=== PATIENT | male | born 1940 | race Caucasian/White ===

== ENCOUNTER → 2018-01-10 12:49 | Day surgery (SDC) | payer OTHER, MEDICARE, SELFPAY | PROVIDERS: Family Provider Internal Medicine; PCP Internal Medicine; Visit Provider Ophthalmology ==

== ENCOUNTER 2018-03-14 07:19 | Day surgery (SDC) | payer OTHER, SELFPAY ==
[2018-03-14] MEDS: PROPARACAINE 0.5% OPHTH SOL 2 DROPS EYE-OP (07:45)
[2018-03-14] MEDS: CATARACT EYE COMPOUND (10 DROPS/SYRINGE) 3 DROPS EYE-OP (07:50)
[2018-03-14 07:54] VITALS: BP 164/88; PULSE 81; RESP 16; TEMP 36.6; O2SAT 97
--- NOTE | 2018-03-14 08:21 | SUR.PREOP ---
Pt ready for OR at this time. PIV in place, admit VS completed, Nursing data base has been completed and pre-operative eye drops in place. Paty at the bedside and awaiting APPLICATION SECURITY CONSULTANT.
--- NOTE | 2018-03-14 08:45 | P.OP.PRE_ITS ---
Pre-operative Note Interval Note Changes: No
--- NOTE | 2018-03-14 08:45 | P.OP_ITS ---
Operative Date/Time/Diagnoses Pre-op diagnosis: Cataract Right eye Post-op diagnosis: same Procedure & Clinicians Procedure: Cataract Surgery Same procedure as scheduled: Yes Surgeon: Stevenson Nash Anesthesia Type: MAC +/- and Sedation Operative Notes Procedure in detail: Patient brought to the operating suite. Tetracaine drops placed in the right eye. Patient was prepped and draped in sterile manner. Wire lid speculum was placed in the eye. Betadine drops were placed on the eye. This was irrigated. Lidocaine jelly was placed on the eye. A paracentesis port was created with a side-port blade. 0.1 mL 1% preservative free lidocaine was injected into the anterior chamber. The anterior chamber was deepened with viscoelastic. 2.6 mm keratome was used to create a temporal clear corneal incision. Cystotome and Utrata forceps were used to create continuous tear capsulorrhexis. Balanced salt solution was used to hydro dissect the nucleus. The phacoemulsification handpiece was inserted and the nucleus was removed using the stop and chop technique. The irrigation aspiration handpiece was inserted and the remaining cortex was removed. Anterior chamber was deepened with viscoelastic. An Hilliard ZCB00 intraocular lens with a power of 22.0 was injected into the capsular bag. Irrigation aspiration handpiece was inserted and the remaining viscoelastic was removed. Incision was hydrated with balanced salt solution and found to be leak free with pressure with Weck- Doreen sponges. 0.1 mL Vigamox injected anterior chamber. 0.3 mL Kenalog 10 mg was injected subconjunctivally. Lid speculum was removed. The patient left the operating room in excellent condition. Complications: none Condition: stable Disposition: same day surgery
--- NOTE | 2018-03-14 08:45 | PM.PREOP ---
Pre-operative Note Interval Note Changes: No
--- NOTE | 2018-03-14 09:01 | SUR.OPER ---
Supine on eye stretcher, head on extension cradle secured with tape. Arms tucked at sides with blanket. Pillow under knees.
[2018-03-14] MEDS: BALANCED SALT IRRIG SOLN NO.2 500 ML, EPINEPHrine 1 MG IRR (09:04)
[2018-03-14] MEDS: LIDOCAINE JELLY 2% 5 ML 1 APPLIC TOP (09:04)
[2018-03-14] MEDS: PHENYLEPHRINE/LIDOCAINE 3ML VIAL (OR) EYE-OP (09:04)
[2018-03-14] MEDS: MOXIFLOXACIN OPHTH DROPS 3 ML BOTTLE 2 DROPS INJ (09:05)
[2018-03-14] MEDS: TETRACAINE 0.5% OPHTH DROPS 15 ML 2 DROPS EYE-RIGHT (09:05)
[2018-03-14] MEDS: TRIAMCINOLONE 50 MG/5 ML VIAL INJ (09:06)
[2018-03-14 09:15] VITALS: BP 156/88; PULSE 76; RESP 16; TEMP 36.3; O2SAT 97
--- NOTE | 2018-03-14 09:30 | SUR.PHASEII ---
outcomes met on discharge for this pt.
== END 2018-03-14 09:30 ==
PROVIDERS: Family Provider Internal Medicine; PCP Internal Medicine; Visit Provider Ophthalmology
DX: H25.11 Age-related nuclear cataract, right eye (principal); I10 Essential (primary) hypertension
CPT/HCPCS: J0171; J2250; J3010; J3301

== ENCOUNTER 2018-03-28 07:53 | Day surgery (SDC) | payer MEDICARE, SELFPAY ==
[2018-03-28 08:29] VITALS: BP 151/81; PULSE 78; RESP 16; TEMP 36.3; O2SAT 94; BMI 33.7
[2018-03-28] MEDS: PROPARACAINE 0.5% OPHTH SOL 2 DROPS EYE-OP (08:30)
[2018-03-28] MEDS: CATARACT EYE COMPOUND (10 DROPS/SYRINGE) 3 DROPS EYE-OP (08:35)
--- NOTE | 2018-03-28 09:00 | PM.PREOP ---
Pre-operative Note Interval Note Changes: No
--- NOTE | 2018-03-28 09:01 | P.OP.PRE_ITS ---
Pre-operative Note Interval Note Changes: No
--- NOTE | 2018-03-28 09:01 | PM.OP.1 ---
Operative Date/Time/Diagnoses Pre-op diagnosis: Cataract Left eye Post-op diagnosis: same Procedure & Clinicians Surgeon: Stevenson Nash Anesthesia Type: MAC +/- and Sedation Operative Notes Procedure in detail: Patient brought to the operating suite. Tetracaine drops placed in the left eye. Patient was prepped and draped in sterile manner. Wire lid speculum was placed in the eye. Betadine drops were placed on the eye. This was irrigated. Lidocaine jelly was placed on the eye. A paracentesis port was created with a side-port blade. 0.1 mL 1% preservative free lidocaine was injected into the anterior chamber. The anterior chamber was deepened with viscoelastic. 2.6 mm keratome was used to create a temporal clear corneal incision. Cystotome and Utrata forceps were used to create continuous tear capsulorrhexis. Balanced salt solution was used to hydro dissect the nucleus. There was iris proplase. The iris was gently repositied into the anterior chamber. The phacoemulsification handpiece was inserted and the nucleus was removed using the stop and chop technique. There continued to be iris proplase. The irrigation aspiration handpiece was inserted and the remaining cortex was removed. Anterior chamber was deepened with viscoelastic. An Hilliard ZCB00 intraocular lens with a power of 23.0 was injected into the capsular bag. Irrigation aspiration handpiece was inserted and the remaining viscoelastic was removed. Incision was hydrated with balanced salt solution and found to be leak free with pressure with Weck-Doreen sponges. The iris was again gently swept back into the anterior chamber. 0.1 mL Vigamox injected anterior chamber. 0.3 mL Kenalog 10 mg was injected subconjunctivally. Lid speculum was removed. The patient left the operating room in excellent condition. Complications: none Condition: stable Disposition: same day surgery
--- NOTE | 2018-03-28 09:04 | SUR.OPER ---
Supine on eye stretcher, head on extension cradle secured with tape. Arms tucked at sides with blanket. Pillow under knees.
[2018-03-28] MEDS: TRIAMCINOLONE 50 MG/5 ML VIAL INJ (09:07)
[2018-03-28] MEDS: PHENYLEPHRINE/LIDOCAINE 3ML VIAL (OR) EYE-OP (09:07)
[2018-03-28] MEDS: MOXIFLOXACIN OPHTH DROPS 3 ML BOTTLE 2 DROPS INJ (09:07)
[2018-03-28] MEDS: TETRACAINE 0.5% OPHTH DROPS 15 ML 2 DROPS EYE-LEFT (09:08)
[2018-03-28] MEDS: LIDOCAINE JELLY 2% 5 ML 1 APPLIC TOP (09:08)
[2018-03-28] MEDS: CHONDROIDTIN/SOD HYALURONATE 1.05 ML SYRINGE INTRAOCULA (09:09)
[2018-03-28] MEDS: BALANCED SALT IRRIG SOLN NO.2 500 ML, EPINEPHrine 1 MG IRR (09:09)
[2018-03-28 09:24] VITALS: BP 129/84; PULSE 84; RESP 16; TEMP 36; O2SAT 97
== END 2018-03-28 09:30 | disposition home or self-care (01) ==
LOC: OR 07:54
PROVIDERS: Family Provider Internal Medicine; PCP Internal Medicine; Visit Provider Ophthalmology
DX: H25.12 Age-related nuclear cataract, left eye (principal); I10 Essential (primary) hypertension
CPT/HCPCS: J0171; J3301

== ENCOUNTER → 2019-01-25 10:41 | Outpatient (CLI) | payer MEDICARE, SELFPAY ==
--- NOTE | 2019-01-25 | DI.CT.S_ITS ---
PROCEDURE: CT SINUS SCREEN WO CON INDICATIONS: Hypertrophy of nasal turbinates TECHNIQUE: Noncontrast 3.0 mm axial images acquired from the frontal sinuses to the mid-sella, with coronal and sagittal reformats. For radiation dose reduction, the following was used: automated exposure control, adjustment of mA and/or kV according to patient size. COMPARISON: None. FINDINGS: Image quality: Excellent. Maxillary Sinuses: No bony remodeling or destruction. Mild maxillary sinus the frontal thickening bilaterally. Sinuses are otherwise clear. Ethmoid Air Cells: No bony remodeling or destruction. Small retention cysts are present bilaterally. Sphenoid Sinuses: No bony remodeling or destruction. Sinuses are clear. Frontal Sinuses: The right frontal sinus is non-aerated, consistent with congenital aplasia. No bony remodeling or destruction. Sinuses are clear. Ostiomeatal Complexes: Ostiomeatal complexes are patent. There are Hugo cells bilaterally. Miscellaneous: Visualized intra-orbital contents are normal. No daniela bullosa or paradoxical turbinate curvature. Mild left nasal septal deviation. IMPRESSION: 1. Mild ethmoid and maxillary sinus disease. 2. Hugo cells bilaterally. 3. Mild leftward nasal septum deviation. 4. Congenital aplastic right frontal sinus. Dictated by: Xu Mo M.D. on 01/25/2019 at 12:53 Approved by: Xu Mo M.D. on 01/25/2019 at 12:57
== END ==
PROVIDERS: PCP Internal Medicine; Visit Provider Otolaryngology
DX: J32.8 Other chronic sinusitis (principal); J34.3 Hypertrophy of nasal turbinates; J34.2 Deviated nasal septum
CPT/HCPCS: 70486

== ENCOUNTER → 2020-08-29 13:52 | Outpatient (CLI) | payer MEDICARE, SELFPAY ==
--- NOTE | 2020-08-29 | DI.RAD.S_ITS ---
PROCEDURE: XR CERVICAL SPINE 2V OR 3V INDICATIONS: Spinal stenosis, cervical region TECHNIQUE: 4 view(s) of the cervical spine were acquired. COMPARISON: None. FINDINGS: Bones: No fractures or dislocations to the C6 level. The lateral masses of C1 appear intact on the odontoid view. No suspicious bony lesions. Severe narrowing of the C5-C6 and C6-C7 disc spaces. Moderate narrowing of the remaining cervical disc spaces . Trace anterolisthesis of C4 on C5. Multilevel degenerative endplate sclerosis and spurring. Diffuse facet arthropathy. Soft tissues: Carotid atherosclerotic plaques incidentally noted. IMPRESSION: Multilevel cervical spondylosis and facet arthropathy Dictated by: Luis A Deng M.D. on 08/29/2020 at 14:59 Approved by: Luis A Deng M.D. on 08/29/2020 at 15:01
== END ==
PROVIDERS: PCP Internal Medicine; Referring Provider Internal Medicine; Visit Provider Internal Medicine
DX: M48.02 Spinal stenosis, cervical region (principal); M47.812 Spondylosis without myelopathy or radiculopathy, cervical region
CPT/HCPCS: 72040

== ENCOUNTER → 2020-09-24 12:34 | Outpatient (CLI) | payer MEDICARE, SELFPAY ==
--- NOTE | 2020-09-24 | DI.MRI.S_ITS ---
PROCEDURE: MR CERVICAL SPINE WO CON INDICATIONS: Spinal stenosis, cervical region TECHNIQUE: Noncontrast sagittal T1 spin echo and T2 fast spin echo, sagittal STIR, foraminal oblique sagittal T2 fast spin echo, and axial gradient echo or T2 fast spin echo through the cervical spine. COMPARISON: [facility], MR, C-SPINE WITHOUT CONTRAST, 05/04/2007, 17:36. [facility], CR, XR CERVICAL SPINE 2V OR 3V, 08/29/2020, 13:59. [facility], MR, C-SPINE WITHOUT CONTRAST, 09/27/2016, 10:04. FINDINGS: Image quality: Excellent. Alignment and Curvature: There is trace C4-C5, C5-C6 and C6-C7 anterolisthesis. Bone Marrow: Marrow demonstrates normal overall signal. Spinal Cord: Visualized spinal cord has normal size and signal. No cerebellar tonsillar herniation. Paraspinous Soft Tissues: No paravertebral masses. Prevertebral soft tissues are normal in thickness. C2-C3: Loss of disc signal and height. Mild, diffuse disc bulge. Mild bilateral facet hypertrophy. Mild bilateral neural foraminal narrowing. No neural compression. C3-C4: Loss of disc signal and height. Moderate, diffuse disc bulge. Mild right and severe left facet hypertrophy. Mild bilateral uncovertebral joint hypertrophy. Mild to moderate narrowing of the central canal. Severe bilateral neural foraminal narrowing with compression of the exiting C4 nerve roots. C4-C5: Loss of disc signal and height. Mild, diffuse disc bulge. Mild right and severe left facet hypertrophy. Mild right and moderate left uncovertebral joint hypertrophy. Mild narrowing of the central canal. Moderate right and severe left neural foraminal narrowing with compression of the exiting left C5 nerve root. C5-C6: Loss of disc signal and height. Mild, diffuse disc bulge. Mild bilateral facet hypertrophy. Mild uncovertebral joint hypertrophy. Mild bilateral neural foraminal narrowing. No neural compression. C6-C7: Loss of disc signal and height. Mild, diffuse disc bulge. Mild bilateral facet hypertrophy. No central stenosis. Mild left neural foraminal narrowing. No neural compression. C7-T1: Loss of disc signal and height. Mild, diffuse disc bulge. Mild bilateral facet hypertrophy. No central stenosis. Mild left neural foraminal narrowing. No neural compression. IMPRESSION: 1. Multilevel degenerative disc disease. 2. Multilevel facet and uncovertebral arthropathy. 3. No significant central canal narrowing. 4. Severe bilateral C3-C4 neural foraminal narrowing with compression of the exiting bilateral C4 nerve roots. Severe left C4-C5 neural foraminal narrowing with compression of the exiting left C5 nerve root. Dictated by: Martha Hamm MD, PhD on 09/24/2020 at 14:30 Approved by: Martha Hamm MD, PhD on 09/24/2020 at 14:43
== END ==
PROVIDERS: PCP Internal Medicine; Referring Provider Internal Medicine; Visit Provider Internal Medicine
DX: M48.02 Spinal stenosis, cervical region (principal); M47.812 Spondylosis without myelopathy or radiculopathy, cervical region; M50.31 Other cervical disc degeneration, high cervical region
CPT/HCPCS: 72141

== ENCOUNTER → 2020-12-16 10:29 | Outpatient (CLI) | payer MEDICARE, SELFPAY ==
--- NOTE | 2020-12-16 | DI.RAD.S_ITS ---
PROCEDURE: XR LUMBAR SPINE 2-3V INDICATIONS: LOW BACK PAIN TECHNIQUE: 3 views of the lumbar spine were acquired. COMPARISON: [facility], MR, L-SPINE WITHOUT CONTRAST, 09/27/2016, 10:35. FINDINGS: Bones: 5 [id number] vertebrae are present. There is normal bony alignment maintained by posterior fusion crossing from L4 through S1. The prior MR scanning had shown a moderate anterior wedge compression fracture at L3 and currently this appears to have progressed towards vertebra plana. Chronicity is uncertain but the appearance is more likely longstanding than acute change. Posterior fusion devices and L5-S1 interbody disc spacer are present, also likely chronic.. No vertebral body compression fractures. No suspicious bony lesions. Soft tissues: Overlying bowel gas pattern is normal. No suspicious soft tissue calcifications. IMPRESSION: Chronic degenerative changes, prior posterior fusion from L4 through S1. Worsening L3 compression fracture, approaching vertebra plana. No definite acute disease. Dictated by: Chet Ramos M.D. on 12/16/2020 at 11:32 Approved by: Chet Ramos M.D. on 12/16/2020 at 11:48
== END ==
PROVIDERS: PCP Internal Medicine; Referring Provider Internal Medicine; Visit Provider Internal Medicine
DX: S32.030A Wedge compression fracture of third lumbar vertebra, initial encounter for closed fracture (principal); M54.5 Low back pain
CPT/HCPCS: 72100

== ENCOUNTER → 2021-12-19 11:02 | Outpatient (CLI) | payer MEDICARE, SELFPAY ==
--- NOTE | 2021-12-19 | DI.RAD.S_ITS ---
PROCEDURE: XR KNEE RT 3V INDICATIONS: Other chronic pain TECHNIQUE: 3 views of the knee were acquired. COMPARISON: None. FINDINGS: Bones: No fractures or dislocations. No suspicious bony lesions. Mild medial, lateral patellofemoral compartment narrowing. No erosions. Soft tissues: Moderate joint effusion. No suspicious soft tissue calcifications. IMPRESSION: Mild tricompartmental arthritic change. Dictated by: Manisha Hartman M.D. on 12/19/2021 at 12:04 Approved by: Manisha Hartman M.D. on 12/19/2021 at 12:05
--- NOTE | 2021-12-19 | DI.RAD.S_ITS ---
PROCEDURE: XR KNEE LT 3V INDICATIONS: Other chronic pain TECHNIQUE: 3 views of the knee were acquired. COMPARISON: None. FINDINGS: Bones: No fractures or dislocations. No suspicious bony lesions. Moderate medial as well as mild lateral [id number] patellofemoral compartment narrowing. No erosions. Soft tissues: Moderate joint effusion. No suspicious soft tissue calcifications. IMPRESSION: Tricompartmental arthritic change most severe medially. Dictated by: Manisha Hartman M.D. on 12/19/2021 at 12:06 Approved by: Manisha Hartman M.D. on 12/19/2021 at 12:06
--- NOTE | 2021-12-19 | DI.RAD.S_ITS ---
PROCEDURE: XR HIP W PEL IF DONE MARILU MIN 4V INDICATIONS: Other chronic pain TECHNIQUE: AP pelvis with lateral view(s) of the bilateral hip(s). COMPARISON: None. FINDINGS: Bones: No fractures or dislocations. Pelvic ring appears intact. No suspicious bony lesions. Lower lumbar fusion is present. There is moderate bilateral degenerative hip joint space narrowing. No erosions. Soft tissues: The visualized bowel gas pattern is normal. No suspicious soft tissue calcifications. IMPRESSION: Bilateral hip osteoarthritis. Dictated by: Manisha Hartman M.D. on 12/19/2021 at 12:06 Approved by: Manisha Hartman M.D. on 12/19/2021 at 12:07
== END ==
PROVIDERS: PCP Internal Medicine; Referring Provider Internal Medicine; Visit Provider Internal Medicine
DX: M16.0 Bilateral primary osteoarthritis of hip (principal); M25.552 Pain in left hip; M25.551 Pain in right hip; M25.561 Pain in right knee; M25.562 Pain in left knee; M25.461 Effusion, right knee; M25.462 Effusion, left knee; G89.29 Other chronic pain
CPT/HCPCS: 73522; 73562

== ENCOUNTER → 2022-02-06 15:14 | Outpatient (CLI) | payer MEDICARE, SELFPAY ==
--- NOTE | 2022-02-06 | DI.MRI.S_ITS ---
PROCEDURE: MR LUMBAR SPINE WO CON INDICATIONS: SPINAL STENOSIS TECHNIQUE: Noncontrast sagittal T1 spin echo and T2 fast echo, sagittal STIR, and T2 fast spin echo through the lumbar spine. In cases with scoliosis, additional coronal T2 fast spin echo may be performed. COMPARISON: [facility], , L-SPINE WITHOUT CONTRAST, 09/27/2016, 10:35. FINDINGS: Image quality: Hardware artifact again noted. Alignment and Curvature: L4-5 degenerative anterior spondylolisthesis stable. Convex left thoracolumbar scoliosis. Bone Marrow: Discectomy and fusion at L 4 5 and L5-S1 supported by posterior jason and screw instrumentation is present. L3 wedge-shaped compression fracture unchanged. Multilevel chronic degenerative endplate changes. L5 decompressive laminectomy noted. Spinal Cord: Conus medullaris terminates at the L1 level. Visualized cord demonstrates normal signal and size. Paraspinous Soft Tissues: No paravertebral masses. T12-L1: Disc height is preserved. No central or foraminal stenosis. L1-L2: Disc space narrowing with circumferential disc bulge and hypertrophic facet joints results in mild central stenosis. Moderate bilateral foraminal stenosis. L2-L3: Circumferential disc bulge with posterior osteophyte combines with hypertrophic facet joints and ligamentum flavum laxity to result in severe central stenosis. Bilateral moderate foraminal stenosis L3-L4: Disc space narrowing with circumferential disc bulge and hypertrophic facet joints combine to result in severe central stenosis. Severe left and moderate right foraminal stenosis present. L4-L5: Discectomy and fusion with hypertrophic facet joints. No significant central stenosis. Moderate left and right foraminal stenosis L5-S1: Discectomy and fusion with decompressive laminectomy present. No central stenosis. Postoperative seroma posterior soft tissues remain stable . Severe left and moderate right foraminal stenosis. IMPRESSION: 1. Multilevel degenerative disc disease and arthropathy results in varying degrees of central and foraminal stenosis including severe central stenosis at L2-3 and L3-4, similar to the prior exam. 2. Stable L4-5 and L5-S1 discectomy and fusion supported by posterior jason and screw instrumentation. L5 decompressive laminectomy. 3. Stable chronic L3 compression fracture Approved by: Cesar Decker M.D. on 02/07/2022 at 7:43
== END ==
PROVIDERS: PCP Internal Medicine; Referring Provider Physical Medicine & Rehabilitation; Visit Provider Physical Medicine & Rehabilitation
DX: M48.062 Spinal stenosis, lumbar region with neurogenic claudication (principal); M51.36 Other intervertebral disc degeneration, lumbar region; M47.816 Spondylosis without myelopathy or radiculopathy, lumbar region; M48.56XS Collapsed vertebra, not elsewhere classified, lumbar region, sequela of fracture; Z98.1 Arthrodesis status
CPT/HCPCS: 72148

== ENCOUNTER → 2022-05-13 12:03 | Outpatient (CLI) | payer OTHER, SELFPAY ==
--- NOTE | 2022-05-13 | DI.CT.S_ITS ---
PROCEDURE: CT LUMBAR SPINE WO CON INDICATIONS: Spinal stenosis, lumbar region TECHNIQUE: Noncontrast 3 mm thick sections acquired from the T12 level to the sacrum. Sagittal and coronal reformats were constructed. For radiation dose reduction, the following was used: automated exposure control. COMPARISON: [facility], MR, MR LUMBAR SPINE WO CON, 02/06/2022, 15:24. FINDINGS: Image quality: Metallic spray artifact limits assessment of multiple images Bones: Wedge-shaped L3 compression fracture remains stable from the prior exam. L4-5 posterolateral fusion, L5-S1 interbody fusion noted with jason and screw instrumentation extending from L3 through S1. Decompressive laminectomy at L5 is largely obscured by metallic spray artifact T12-L1: Disc space narrowing. No central or foraminal stenosis. L1-L2: Disc space narrowing with circumferential disc bulge present. Moderate central stenosis. Moderate bilateral foraminal stenosis greater on the right. L2-L3: Disc space narrowing with circumferential disc bulge and hypertrophic facet joints results in moderate central stenosis. Moderate bilateral foraminal stenosis L3-L4: Disc space narrowing with posterior disc bulge results in at least moderate central stenosis. Moderate right and severe left foraminal stenosis. L4-L5: Size disc space narrowing present. Central canal obscured by spray artifact. There is severe bilateral foraminal stenosis present. L5-S1: Discectomy and fusion. Central canal appears decompressed. Severe bilateral foraminal stenosis Soft tissues: No retroperitoneal masses or hematomas. Visualized aorta is normal in caliber. IMPRESSION: Multilevel degenerative disc disease and arthropathy results in varying degrees of central and foraminal stenosis including moderate central stenosis L1-2, L2-3 and L3-4. Lower lumbar spine instrumentation and fusion. L3 wedge-shaped compression fracture, stable from prior Approved by: Cesar Decker M.D. on 05/13/2022 at 18:28
[2022-05-13 13:12] LABS: Hemoglobin A1C% w Est Avg Glu 5.3 % (4.0-6.0)
[2022-05-13 13:13] LABS: Add Manual Diff / Slide Review NO; Basophils Absolute Auto 0 /uL (0-100); Basophils Percent Auto 1.1 % (0-2); Eosinophils Absolute Auto 0 /uL (0-450); Eosinophils Percent Auto 0.9 % (2-4); Hematocrit 37.2 % (41-53); Hemoglobin 12.4 g/dL (13.5-17.5); Lymphocytes Absolute Auto 1600 /uL (1100-4500); Lymphocytes Percent Auto 39.6 % (25-40); Mean Corpuscular HGB Conc 33.2 % (30-36); Mean Corpuscular Hemoglobin 30.1 PG (26-34); Mean Corpuscular Volume 90.7 fL (80-100); Monocytes Absolute Auto 700 /uL (0-900); Monocytes Percent Auto 17.7 % (3-14); Neutrophils Absolute Auto 1700 /uL (1500-7000); Neutrophils Percent Auto 40.7 % (50-75); Platelet Count 142 X10^3/uL (150-400); Red Cell Distribution Width 14.7 % (11.6-14.8); White Blood Cell Count 4.2 X10^3/uL (4.5-11.0)
[2022-05-13 13:28] LABS: BUN Creatinine Ratio 18.4 (6-22); Blood Urea Nitrogen 14 mg/dL (9-20); Calcium 8.5 mg/dL (8.4-10.2); Carbon Dioxide 30 mmol/L (22-32); Chloride 101 mmol/L (98-107); Estimated Glomerular Filt Rate > 60 mL/min (>60); Glucose 90 mg/dL (80-110); HEMOLYSIS < 15 (0-50); Sodium 138 mmol/L (137-145)
== END ==
PROVIDERS: PCP Internal Medicine; Referring Provider Orthopaedic Surgery Orthopaedic Surgery of the Spine; Visit Provider Orthopaedic Surgery Orthopaedic Surgery of the Spine
DX: Z01.818 Encounter for other preprocedural examination (principal); R73.9 Hyperglycemia, unspecified; M48.061 Spinal stenosis, lumbar region without neurogenic claudication; Z01.812 Encounter for preprocedural laboratory examination; M51.36 Other intervertebral disc degeneration, lumbar region; M47.816 Spondylosis without myelopathy or radiculopathy, lumbar region; Z98.1 Arthrodesis status; M48.56XA Collapsed vertebra, not elsewhere classified, lumbar region, initial encounter for fracture
CPT/HCPCS: 36415; 72131; 80048; 83036; 85025; 93005; 93010

== ENCOUNTER → 2022-06-18 10:54 | Outpatient (CLI) | payer OTHER, SELFPAY ==
[2022-06-18 12:38] LABS: COVID19 -Nasal RAPID Negative (Negative)
== END ==
PROVIDERS: PCP Internal Medicine; Referring Provider Orthopaedic Surgery Orthopaedic Surgery of the Spine; Visit Provider Orthopaedic Surgery Orthopaedic Surgery of the Spine
DX: Z20.822 Contact with and (suspected) exposure to COVID-19 (principal)
CPT/HCPCS: 87635; C9803

== ENCOUNTER 2022-06-21 06:29 | Inpatient (IN) | payer OTHER, SELFPAY ==
[2022-06-15 09:52] VITALS: BMI 33.5
[2022-06-21] VITALS (19 sets, daily range): BP systolic 100–172; BP diastolic 56–81; PULSE 65–88; RESP 11–20; TEMP 36.4–37.6; O2SAT 90–100; BMI 33.5
[2022-06-21] MEDS: LACTATED RINGERS 1,000 ML 84 ML IV ×2 (07:23→09:26)
--- NOTE | 2022-06-21 07:24 | SUR.OPER ---
Prone on spine table, head in foam head support, padded chest and pelvic supports, gel pad at knees, lower legs supported by pillows; nipples, genitalia and toes free of pressure, arms secured on foam padded arm boards at <90 degrees abduction. Tape over blanket at thigh secured to table.
--- NOTE | 2022-06-21 07:51 | PM.PREOP ---
Pre-operative Note COVID-19 COVID-19 status: Negative Result date/Date tested (Pos, Neg/Pending): 06/20/22 Criteria for continued procedure: Expected advancement of disease process, Possibility delay results in more complex future surgery or treatment, Increased loss of function, Continuing or worsening of significant or severe pain and Deterioration of the patient's condition or overall health Interval Note History & Physical reviewed/Exam performed by Physician: Yes Changes to H&P: No
[2022-06-21 07:54] LABS: Hematocrit 38.5 % (41-53); Hemoglobin 13.1 g/dL (13.5-17.5)
[2022-06-21] MEDS: CEFAZOLIN 2 GM/100 ML PREMIX 100 ML IV ×3 (08:00→19:33)
[2022-06-21] MEDS: BUPIVACAINE LIPOSOME 266 MG/20 ML VIAL INJ (08:45)
[2022-06-21] MEDS: BUPIVACAINE 0.25% (PF) 60 ML, EPINEPHrine 0.3 MG INJ (08:48)
[2022-06-21] MEDS: ACETAMINOPHEN IV 1,000 MG/100 ML VIAL 400 MG IV (12:11)
--- NOTE | 2022-06-21 13:30 | DI.RAD.S_ITS ---
PROCEDURE: XR LUMBAR SPINE 2-3V INDICATIONS: L2-3, L3-4 TLIF (ROBOT) TECHNIQUE: 2 intraoperative fluoroscopic views of the lumbar spine were acquired. COMPARISON: [facility], , XR LUMBAR SPINE 2-3V, 12/16/2020, 10:37. FINDINGS: Intraoperative fluoroscopic images of lumbar spine shows transpedicular fusion hardware at L2 through L5 levels with intervertebral spacer placement at L2-3 and L3-4 levels. IMPRESSION: Fluoro guidance was provided intraoperatively for posterior fusion of lumbar spine as above. Dictated by: Yazan Khanna M.D. on 06/21/2022 at 14:14 Approved by: Yazan Khanna M.D. on 06/21/2022 at 14:15
[2022-06-21] MEDS: HYDROMORPHONE 2 MG INJ IV ×5 (14:08→14:32)
--- NOTE | 2022-06-21 14:25 | P.OP_ITS ---
Operative Date/Time/Diagnoses Date of procedure: 06/21/22 Time of procedure: 07:40 Pre-op diagnosis: 1. L2-3, L3-4, L4-5 spinal stenosis 2. Hx of L4-5, L5-S1 fusion with instrumentation 3. Lumbar spondylosis with radiculopathy Post-op diagnosis: same Procedure & Clinicians Procedure: 1. L2-3, L3-4 Postero-lateral and posterior interbody fusion 2. L2-3, L3-4 interbody cage placement. 3. L2-3, L3-4 decompressive laminectomy with bilateral facetecomies 4. L2-3, L3-4, L4-5 Posterior segmental instrumentation 5. L4-5, L5-S1 posterior segmental hardware removal 6. L4-5, L5-S1 exploration of fusion with left hemilaminectomy 7. L4-5 posterolateral fusion 8. [place] of bone marrow from iliac crest 9. Utilization of microsurgical technique and operating microscope 10. Utilization of robotic navigation Same procedure as scheduled: Yes Indications: Patient has been having chronic back pain and worsening lumbar radiculopathy and symptoms of neurogenic claudication. Patient failed multiple conservative management with worsening pain weakness and numbness in his lower extremity. Patient has been having difficulty performing activity of daily living. After discussing risks benefits of treatment options, patient elected proceed with surgery. Surgeon: Aishwarya Damico Apprentice Cosmetologist: Senia Parada Click Yes if Unassisted: No Anesthesia Type: General Operative Notes Closure Type: primary Specimen(s): none sent Prosthetic devices, grafts, tissues, transplants, or devices: Globus CREO MIS screws, Rise cages Applied: catheter Estimated Blood Loss (mL): 250 Blood products transfused: none Procedure in detail: Patient was seen in the preoperative area. Risks and benefits of the surgery was discussed with the patient. Informed consent was obtained from the patient and placed in the chart. Surgical site was marked. Patient was taken to the operative room. General anesthesia was administered. Prophylactic antibiotic was given to the patient less than 30 min before the incision was made. Patient was placed into a prone position on the Gregory table. Patient's back was then prepped and draped in the sterile fashion. Time-out was performed at this time. After patient was prepped and draped, patient's PSIS was palpated and marked bilaterally. Small 1 cm incision was made over the PSIS for placement of the reference probes. Two trocar was placed into the PSIS 1 on each side. The reference probe was attached to the trocar of the reference apparatus. At this time the C-arm imaging was used to confirm AP and lateral of L2,L3, L4, L5 vertebrae and merged the C-arm imaging using the [employer] robotic navigation system with the CT of the lumbar spine. After successful merging was completed and confirmed, skin marker was used to dawit out the skin incision using the [employer] robotic arm. Bilateral incision was made at this time. Using patient's previous scar incision was made over the L2, L3, L4, L5 interval on the left side. Fascia was incised in line with skin incision. Patient's previously placed hardware over the L4-5, L5-S1 level was identified by dissecting down to the level the hardware using a Bovie and a Willard. The locking caps which was removed using myOrderus screwdriver. The locking jason was then removed from the tulips of the pedicle screws using a Andrey. The pedicle screws were then removed using the screwdriver. The screws were found to have good purchase. Pre templated trajectory was used and guided using the [employer] robotic navigation system for bilateral L2, L3, L4, L5 pedicle screws placement. This was done by using the robotic arm to guide the high-speed bur to make a cortical entry point. Next a drill was placed also using the robotic arm and guided using the navigation system drilling partially through bilateral L2, L3, L4, L5 pedicles. Next L2, L3, L4, L5 pedicle screws it was pre templated and measured was placed onto the power water taxi driver and inserted into the pedicles bilaterally. After all 8 screws were placed C-arm imaging was taken of both AP and lateral to confirm the placement. Excellent placement of the screws were confirmed and a matched precisely with the pre planned screw placement using the navigation system. MARs retractor was inserted using [employer] guidence. Globus MARS retractors was placed inside the incision and docked onto the L2 and L3 lamina. Using microsurgical technique and operating microscope, a L2, L3 laminectomy and L2-3, L3-4 facetectomy was performed using a Kerrison rongeur. Patient was found have severe lateral recess and neural foramen stenosis which was fully decompressed after the laminectomy facetectomy. More than 75% of the facets were removed during the process of decompression rendering L2-3, L3-4 level grossly unstable and required a fusion procedure at the same time. The disc space at L2-3, L3-4 was identified, and a total diskectomy was performed at L2-3, L3-4 level. The endplates were decorticated using a rasp and shaver. The total diskectomy and decortication was performed at L2-3, L3-4 level in order to to accomplish a L2-3, L3-4 fusion. The local bone from the laminectomy and facetectomy was saved for local bone grafting. After the total diskectomy and decortication was completed, Trifecta bone graft material was combined with local bone that was harvested earlier. At this time, a separate skin is incision was made over the iliac crest. A Jam shidi needle was inserted into the iliac crest through a separate skin incision. 5 cc of bone marrow aspiration was obtained through the separate skin incision using a Jamshidi needle from the iliac crest. The bone marrow aspiration was combined with local bone and the Trifecta bone grafting material. The bone grafting material was placed into the L2-3, L3-4 interbody space along with a expandable cage. The cage was expanded to its maximum height using the torque limiting screwdriver. The disc preparation as well as the cage insertion were also performed under navigation guidance. After the cage was placed, AP and lateral C-arm imaging was taken to confirm placement of the cage and excellent position was confirmed. The fusion mass on the right side of L4-5, L5-S1 was exposed by performing a right-sided hemilaminectomy at L4-5, L5-S1 level. The hemilaminectomy was performed using the Kerrison rongeur to undercut the lamina as well removing additional epidural scar tissue for purpose of decompressing the epidural space. The fusion mass was explored and was found have visible motion indicating pseudoarthrosis at L4-5 level and the L5-S1 was found to be solid. Globus MARS retractor was inserted and docked onto the L2-3, L3-4, L4-5 posterolateral gutter. Using the power drill, posterior-lateral decortication was performed at L2-3, L3-4, L4-5 level until bleeding cortical bone was identified. The remaining bone grafting material was placed into the L2-3, L3-4, L4-5 posterior lateral gutter he order to accomplish posterolateral fusion at the L2-3, L3-4, L4-5 level. At this time the tulips were attached to the L2, L3, L4-L5 pedicle screw shanks. This was done in L2, L3, L4-L5 pedicles bilaterally. After measuring the length of the rods, they were inserted into the tulips of the pedicle screws and locked in place using locking caps and torque limiting screwdriver bilaterally. Total 8 caps and 2 titanium rods was used in order to complete the posterior instrumentation construct. After all the hardware was placed, and confirmed with AP and lateral C-arm imaging, the wound was then irrigated with sterile normal saline and packed with Ray-Poly gauze for 3 min to accomplish hemostasis. After the gauze was removed the deep fascia was closed with #1 Vicryl suture. The subcutaneous layer was closed with 2-0 Vicryl. The skin was closed with skin erich. Patient tolerated the procedure well. There were no complications. Neuro monitoring system was used to monitor patient's neurologic status throughout entire procedure. There was no disturbance of the neural monitoring signals throughout the case. Complications: none Post-operative Condition: stable Disposition: PACU Plan for aftercare: Admit to inpatient hospital
[2022-06-21] MEDS: hydrOXYzine 50 MG/ML INJ 25 MG IM (14:56)
--- NOTE | 2022-06-21 15:01 | SUR.PHASEI ---
1500 Pt arousable to voice, and needs coaching to deep breath to maintain sats above 92% on 4 L NC
[2022-06-21] MEDS: OXYCODONE IR 5 MG TABLET PO (16:05)
--- NOTE | 2022-06-21 16:08 | SUR.PHASEI ---
Pt is easily aroused, sleeping without frowning, when he wakes up he states pain 42 out of 1-10. Pt will then fall back to sleep.
[2022-06-21] MEDS: SODIUM CHLORIDE 0.9% 1,000 ML 100 ML IV (16:42)
[2022-06-21] MEDS: HYDROMORPHONE 0.5 MG INJ IV ×2 (18:14→22:14)
[2022-06-21] MEDS: OXYCODONE IR 5 MG TABLET 10 MG PO (19:32)
[2022-06-21] MEDS: TAMSULOSIN 0.4 MG CAPSULE 0.8 MG PO (20:47)
[2022-06-21] MEDS: DOCUSATE 100 MG CAPSULE PO (20:47)
[2022-06-21] MEDS: lisinopriL 20 MG TABLET PO (20:47)
[2022-06-21] MEDS: TRAMADOL 50 MG TABLET PO (20:48)
[2022-06-21] MEDS: SENNOSIDES 8.6 MG TABLET 17.2 MG PO (20:48)
[2022-06-21] MEDS: BACLOFEN 10 MG TABLET PO (21:00)
[2022-06-21] MEDS: ACETAMINOPHEN 325 MG TABLET 650 MG PO (22:14)
[2022-06-21] MEDS: hydrOXYzine pamoate 25 MG CAPSULE PO (22:14)
[2022-06-22] VITALS (10 sets, daily range): BP systolic 113–136; BP diastolic 52–74; PULSE 66–110; RESP 16–18; TEMP 37–37.6; O2SAT 92–97
[2022-06-22] MEDS: OXYCODONE IR 5 MG TABLET 10 MG PO ×4 (00:14→08:59)
[2022-06-22] MEDS: HYDROMORPHONE 0.5 MG INJ IV ×3 (00:15→09:26)
[2022-06-22] MEDS: hydrOXYzine pamoate 25 MG CAPSULE PO ×2 (02:30→06:37)
[2022-06-22] MEDS: CEFAZOLIN 2 GM/100 ML PREMIX 100 ML IV (04:11)
[2022-06-22 05:29] LABS: Hematocrit 33.7 % (41-53); Hemoglobin 11.3 g/dL (13.5-17.5)
[2022-06-22] MEDS: PANTOPRAZOLE DR 20 MG TABLET PO (06:37)
--- NOTE | 2022-06-22 07:45 | PM.PNPO.1 ---
Subjective Subjective Date Patient Seen: 06/22/22 Time Patient Seen: 07:45 Interval history: Patient is complaining of moderate to severe low back pain this morning. He denies any new numbness or tingling down his legs. He is not gotten up yet with physical therapy. Exam Vital Signs (past 8 hours): - 06/22/22 03:30 Temperature 99.0 F Pulse Rate 98 H Respiratory Rate 17 Blood Pressure 134/65 Pulse Oximetry 95 Oxygen Flow Rate 2 Oxygen Delivery Method Nasal Cannula Oxygen Flow Rate 2 Narrative Exam Narrative: Pleasant 81-year-old male, resting in bed, mild distress due to pain. Dressing is clean, dry, intact. No surrounding erythema, induration, or juli pus. Bilateral lower extremity: Motor functions are grossly intact, sensation is grossly intact to light touch, calves are soft and nontender to palpation. Objective Labs Result Diagrams: 06/22/22 05:15 Labs: Laboratory Results - last 24 hr 06/21/22 06/21/22 06/22/22 07:35 07:35 05:15 Hgb 13.1 L 11.3 L Hct 38.5 L 33.7 L Blood Type O Positive Antibody Screen Negative [facility] Medical History Acid reflux Easy bruisability Enlarged prostate HLD (hyperlipidemia) HTN (hypertension) Neuropathy Osteoarthritis Precancerous skin lesion RBBB (right bundle branch block) Spinal stenosis Surgical History History of cervical spinal surgery History of lumbar fusion (~2012) History of lumbar surgery Hx of appendectomy Hx of bilateral cataract extraction Hx of oral surgery (~11/2021) Hx of tonsillectomy Social History household members: spouse Smoking Status: Former smoker alcohol intake: current Assessment & Plan Post-op Postoperative Procedures: Procedures Operation Date: 06/21/22 07:45 Actual Procedure Side Surgeon p L2-3,L3-4 TLIF w. posterior instrumentation, L4-S1 HWR, L2-S1 PSF w, instrumentation -Robot Not Applicable Aishwaray Damico MD Postoperative day: 1 Postoperative status: marginal pain control Postoperative status narrative: -stable status post L2-3, L3-4 TLIF, L4-S1 hardware removal, L2-S1 fusion Postoperative plan: routine post-op care Postoperative plan narrative: -mobilize with PT/OT. Weightbearing as tolerated with front wheel walker or cane. -continue with multimodal pain management. Encouraged taking medications regularly to give him better pain control -DC home likely in 1-2 days, depending on pain control and physical therapy Quality VTE Deep Vein Thrombosis/Pulmonary Embolism Present on Admission: No
[2022-06-22] MEDS: PREGABALIN 50 MG CAPSULE PO (08:58)
[2022-06-22] MEDS: DOCUSATE 100 MG CAPSULE PO ×2 (08:58→20:12)
[2022-06-22] MEDS: TRAMADOL 50 MG TABLET PO ×3 (08:58→20:12)
[2022-06-22] MEDS: ATORVASTATIN 20 MG TABLET PO (08:58)
[2022-06-22] MEDS: FUROSEMIDE 20 MG TABLET PO (08:58)
[2022-06-22] MEDS: SODIUM CHLORIDE 0.9% FLUSH 10 ML IV ×2 (09:00→09:26)
--- NOTE | 2022-06-22 09:55 | PT.IIE ---
Current Diagnoses Spondylolisthesis, lumbar region (06/21/22) Spinal stenosis, lumbar region with neurogenic claudication (06/21/22) Surgery Performed Operation Date: 06/21/22 07:45 Actual Procedures p L2-3,L3-4 TLIF w. posterior instrumentation, L4-S1 HWR, L2-S1 PSF w, instrumentation -Robot(Not Applicable) - Aishwarya Damico MD Surgical History (Last Reviewed 06/22/22 @ 07:46 by Christy Mcclelland PA-C) History of cervical spinal surgery History of lumbar fusion (~2012) History of lumbar surgery Hx of appendectomy Hx of bilateral cataract extraction Hx of oral surgery (~11/2021) Hx of tonsillectomy Medical History (Last Reviewed 06/22/22 @ 07:46 by Christy Mcclelland PA-C) Acid reflux Easy bruisability Enlarged prostate HLD (hyperlipidemia) HTN (hypertension) Neuropathy Osteoarthritis Precancerous skin lesion RBBB (right bundle branch block) Spinal stenosis Physical Therapy Inpatient Evaluation/Re-Eval M1 PT/OT-IP Prior Functional Status Start: 06/22/22 12:35 Freq: NEEDED Status: Active Protocol: Document 06/22/22 09:55 AB (Rec: 06/22/22 12:48 AB [email or web address]) Medical Review Prior Functional Status Medical History Reviewed Yes Communication able to make needs known; slightly lethargic Mobility and Gait spouse provided pt's PLOf and home set up info stated that pt is modified independent with all mobilities and ambulation using SPC Social History Household Members spouse Living Arrangements House Number of Floors (Floors) Two Floors Number of Stairs To Enter/Railing? 2 platform steps to enter the house pt stays on main level of the house Home Environment High Toilet,Walk in Shower, Built-In Shower Seat Home Equipment Front Wheel Walker,Straight Cane,Hand Held Shower,Grab Bars In Shower Additional Social History Comment pt has an adjustable bed M2 PT-IP Current Condition Start: 06/22/22 12:35 Freq: NEEDED Status: Active Protocol: Document 06/22/22 09:55 AB (Rec: 06/22/22 12:48 AB [email or web address]) Physical Therapy Current Condition Current Condition Evaluation Date 06/22/22 Treatment Diagnosis s/p L2-3, L3-4 TLIF; difficulty in walking Onset Date 06/21/22 M3 PT-IP Subjective Start: 06/22/22 12:35 Freq: NEEDED Status: Active Protocol: Document 06/22/22 09:55 AB (Rec: 06/22/22 12:48 AB [email or web address]) Subjective Physical Therapy Visit Type Type Initial Evaluation Visit Start Time 09:55 Visit Stop Time 12:00 Total Visit Minutes 50 Notes seem for split visits: 955 to 1000 and 1115 to 1200 Number of WARPER TENDER Visits 0 Physical Therapy Visit Comments Patient Comments initially refusing PT and stated that he cannot move and does not want to get out of bed due to back pain; spouse in room Therapy Pain Assessment Pain When Pain Assessed At Rest Pain Present Pain Present Pain Reported Location Lower Back Intensity 8 Scale Used Numeric (0 - 10) Pain Behaviors Guarding Pain Management Techniques Apply Cold,Distraction, Modification of Treatment,Re- positioning,Timing of Activity with Medications M4 PT-IP Mobility and Gait Start: 06/22/22 12:35 Freq: NEEDED Status: Active Protocol: Document 06/22/22 09:55 AB (Rec: 06/22/22 12:48 AB [email or web address]) PT-Bed Mobility Assessment Rolling Type of Rolling Log Rolling Level of Assist Maximal Assistance,2 Person Assistance Supine to Sit Supine to Sit Maximum Assistance,Total Assistance,Head of Bed Elevated,Bedrails Scooting Scooting to Edge of Bed Maximum Assistance,Dependent PT-Transfer Assessment Sit to and From Stand Sit to and from Stand Maximum Assistance,2 Person Assistance,Use of Upper Extremities Equipment Transfer Assistive Device Gait Belt,Front Wheeled Walker Orthotic/Prosthetic Devices or Brace: No Transfers Transfer Destination Chair Transfer Technique Stand Step Pivot Transfer Ability Level of Assist Maximum Assistance,2 Person Assistance,Use of Upper Extremities Comments Mobility Comments pt educated on back precautions and log roll bed mobility. pt c/o 8/10 LBP and increases with mobility with increase muscle guarding. pt also slightly lethargic. spouse in room. pt completed log roll supine to sit max A x 2 to total A x 2 and max cues with tasks. pt able to sit on EOB CGA. c/o increase LBP. requiring max A to total for scooting to EOB. completed sit to stand x 2 attempts max A x 2 and max cues. step transfer to chair using FWW max Ax 2 and max cues. required assist with weight shifting. positioned pt on the chair. call light and table placed within reach. informed pt and spouse regarding SNF recommendation at this time and spouse stated that she wants pt home if possible. Gait Assessment Comments Gait Comments unable a this time PT-Balance Assessment Sitting Balance and Reactions Static Sitting Balance Ability Fair Dynamic Sitting Balance Ability Poor Standing Balance and Reactions Static Standing Balance Ability Poor Dynamic Standing Balance Ability Poor Device Used FWW M5 PT-IP Objective Assessments Start: 06/22/22 12:35 Freq: NEEDED Status: Active Protocol: Document 06/22/22 09:55 AB (Rec: 06/22/22 12:48 AB [email or web address]) Orientation Orientation/Cognition Level of Alertness Lethargic Language Function Ability Hard of Hearing Safety Awareness Decreased Safety Awareness Memory Description Short Term Impaired Gross Range of Motion Lower Extremity ROM Assessment Within Functional Limits Strength Comments Strength Comments LLE: 4-/5 RLE: 3+/5 Coordination Assessment Gross Coordination Gross Coordination WNL Sensation Assessment Sensation Gross Sensation Right LE Impaired,Left LE Impaired Sensation Description Numbness Comments Sensation Comments chronic LE neuropathy Muscle Tone Muscle Tone WNL Yes M6 PT-IP Treatment Start: 06/22/22 12:35 Freq: NEEDED Status: Active Protocol: Document 06/22/22 09:55 AB (Rec: 06/22/22 12:48 AB [email or web address]) Physical Therapy Treatment Education Education Provided Precautions,Weight Bearing Status,Post-Op Packet,Safety M7 PT-IP Assessment and Plan Start: 06/22/22 12:35 Freq: NEEDED Status: Active Protocol: Document 06/22/22 09:55 AB (Rec: 06/22/22 12:48 AB [email or web address]) PT Summary Assessment and Plan Potential Rehabilitation Potential Fair Status of Condition at Evaluation Evolving Summary Impairments Pain,ROM,Strength,Balance, Coordination,Sensation,Tone, Cognition,Bed Mobility, Transfers,Gait,Activity Tolerance Assessment Summary pt requiring max A x 2 and max cues with all tasks. pt with c/o increase LBP affecting mobility. pt will require SNF rehab to improve strength and mobility. will continue to assess progress. Goals Bed Mobility Goal Minimal Assistance Transfer Goal Minimal Assistance,Front Wheeled Walker Gait Goal Minimal Assistance,Front Wheel Walker Gait Distance 50 Other Goals improve bed mobility, transfers using FWW and ambulation using FWW 200ft SBA up/down 2 platform steps using FWW SBA Days to Meet Goals 10 Frequency of Treatment Frequency Of Treatment Twice a Day Treatment Plan Physical Therapy Treatment Plan Bed Mobility Training,Transfer Training,Gait Training, Therapeutic Exercise,Balance Retraining,Post Op Education, Discharge Planning,Hot or Cold Pack,Neuromuscular Re-ed, Coordination Retraining,Manual Therapy Precautions Lumbar Precautions Log Roll,No Twisting,Limit Bending,Lifting Restriction of 10 lbs,Gait Belt above Incisional Area Recommendations To Nursing Amount of Assist Needed 2 Person Assist Discharge Recommendations PT Discharge Recommendations SNF Rehab Transportation Needs at Discharge Private Vehicle,Wheelchair/ Cabulance
--- NOTE | 2022-06-22 14:05 | OT.IPNOTE ---
Attempted to see pt for OT eval and pt states content to just be in the recliner for now and then drifting off to sleep after states that he had 5/10 pain at rest. Nursing notified. To check on pt tomorrow for OT eval. At this time best to use kavin lift for pt and to reassess his mobility tomorrow as pt is very drowsy now.
--- NOTE | 2022-06-22 14:08 | PT-IP ANOTE ---
Pt refused PT and getting back into bed this PM. Will check back in AM. Appears very groggy, RN aware. Laurie lift recommended for transfers at this time.
--- NOTE | 2022-06-22 16:01 | CM.DANOTE ---
DCP/Assessment: Reviewed chart. Patient is a 81yr old male admitted inpatient status for TLIF performed 06-21-22. PCP is Dr. Savage. Primary payor is [facility]. Patient underwent TLIF on 06-21-22 currently patient medicated for pain and sleeping heavily. RN reports spouse/Paty has been in/out today. Patient did not participate much with therapy secondary to pain. No spouse at bedside at time of visit. Patient sleeping soundly. P: Hopeful patient will be able to d/c home once medically stable. Anticipate possible home health pending acute care recovery. Need to meet with patient when medically appropriate to do so. [email or web address] Discharge Planning/Care Management CM Discharge Assessment Start: 06/22/22 15:52 Freq: Status: Active Protocol: Document 06/22/22 15:53 KJS (Rec: 06/22/22 16:01 KJ [id number]) Discharge Planning Assessment Assigned Beekeeper Farmer NICOLETTE Box Contact Information Paty Gray (spouse) # Advance Directives? Yes Advance Directives on File Yes History Provided By Patient,Medical Record Prior Living Arrangements House Household Members spouse Caregiver for Another No Barriers to Discharge No Discharge Plan Home Transportation Arrangement Pending Additional Comment At this time d/c needs unknown . Patient admitted for elective TLIF performed on with Dr. Damico. Review Status In Process Next Review Type Continued Stay Review Pre-Anesthesia Assessment Start: 06/15/22 09:52 Freq: Status: Complete Protocol: Document 06/15/22 09:52 CAB (Rec: 06/15/22 10:42 CAB [id number]) Pre-Anesthesia Assessment Preferred Name Diogenes Patient Information Reviewed Via Phone Assessment Assessment Completed With Patient Diagnostic Results BMP/CMP,CBC Comment Labs/ECG @ [facility] 05/13/22, COVID screen @ [facility] 06/18/22 Primary Care Provider Roly Savage Seen Specialist in Last 12 Months Yes Specialist Seen Human Relations Manager,Orthopedist Primary Language Yoruba Database Administration Project Manager Required No Height 173.99 cm Weight 101.605 kg Body Mass Index (BMI) 33.5 Hearing Ability Normal Visual Assist None,Magnifying Glass Dentition Type Teeth, Missing Barriers to Learning None Hx Anesthesia Reactions No Hx Family Anesthesia Reaction Yes: Mom had issues of extreme nausea Hx Malignant Hyperthermia No Hx Blood Transfusions No Hx Blood Transfusion Reaction No Anesthesia Review Requested No alcohol intake current alcohol intake frequency 0-2 drinks per day Smoking Status Former smoker how long ago did patient quit smoking Quit 1969 Substance Use Type does not use Pain Present Pain Reported Musculoskeletal Symptoms Abnormal Gait,Back Pain, Difficulty Walking,Muscle Spasms,Muscle Weakness, Numbness,Tingling History of Falling (Recent or History of No ) Patient is completely paralyzed or No completely immobile Prosthesis or Orthotic Device Cane Mental Status Oriented to own ability Is patient on oxygen? No Does patient have POWELL/SOB No Hx Sleep Apnea No CPAP/BIPAP use not prescribed Currently Taking a Beta Edna No Can You Climb a Flight of Stairs Without Yes SOB Hx Chest Pain No Hx SOB No Hx Syncope or Dizziness No Anti-Coagulant Therapy No Has a Foundry Tender No Cardiac Testing No Hx Pacemaker/ICD No Pacemaker Rep Required? No Cardiac Clearance Received No Diet Type At Home Regular Dysphagia No Gastrointestinal Symptoms Reflux Bladder Pattern Nocturia Urinary Catheter Present No Hx Urinary Self Catheterization No Diabetes No HgbA1C 5.3 Date 05/13/22 Hx Drug Resistant Organism No Presence of External or Internal Medical Yes: Lumbar hardware, Devices bilateral eye IOLs Have you had any close contact with No someone diagnosed with COVID-19? Received a COVID vaccine? Yes Received all doses? Yes Marital Status Lives With spouse Current Living Arrangements House Number of Floors (Floors) Two Floors Support System Spouse Does the Patient Have Assistance After Yes Surgery Patient Discharge Plan Description Return Home Comment Pt advised 3-6 day length of stay per surgeon Feels Safe in Current Environment Yes Been Physically Hurt or Threatened By a No Person in Current Environment Do you have thoughts of harming yourself None or others? Are you currently considering suicide? No Do you have a plan to hurt yourself or No Plan others? Do You Have Any Spiritual Beliefs That No May Affect Your HC Choices? Do You Have Any Cultural Practices That No May Affect Your HC Choices? Who Can We Speak to About Patient's Care Family, friends Identifying Code for Release of Patient Declines to issue Information Health Care Proxy/Next of Kin Paty () Health Care Proxy Emergency Contact Name Paty () Emergency Contact Advance Directives? Yes Advance Directives on File Yes Power of Propeller Tester Yes Power of Propeller Tester Name Paty Power of Propeller Tester PAC Instructions Durable medical equipment, Medications to take/avoid, Nasal antibiotic,No ETOH/ petroleum product on skin DOS, NPO,Post-op transportation, Sensory aids,Sturdy shoes/ comfortable clothes,Do not bring valuables and remove jewelry
[2022-06-22] MEDS: ACETAMINOPHEN 325 MG TABLET 650 MG PO (17:04)
[2022-06-22] MEDS: CYCLOBENZAPRINE 10 MG TABLET 5 MG PO (19:30)
[2022-06-22] MEDS: lisinopriL 20 MG TABLET PO (20:12)
[2022-06-22] MEDS: TAMSULOSIN 0.4 MG CAPSULE 0.8 MG PO (20:12)
[2022-06-22] MEDS: SENNOSIDES 8.6 MG TABLET 17.2 MG PO (20:12)
[2022-06-23] MEDS: MAG HYDROX/ALUM/SIMETH 30 ML UDC PO ×2 (01:51→05:08)
--- NOTE | 2022-06-23 04:08 | PC.NURSE ---
Pt is AxOx4, anxious and needy. VSS, pt c/o and pressure around abdomen. Pt's jung catheter was removed during the day around 1230 and pt did not void till 1900. Bladder was scanned and performed straight cath around 1910 and 300 ml urine out. Later, pt c/o pain abd and stated pressure so bladder was scanned. It was 481 ml when bladder was scanned. Pt tried to void into the urinal twice but not successful. Thus, another straight catheter was done and 685ml of clear, yellow urine out. Soon after, pt c/o again pressure around the lower abdomen and requested to straight cath. RN explained that it was done 10 minutes ago. Then, pt stated it is more like gas so PRN Maalox Plus given around 0120 with good effect. Dressing on his back is C/D/I. No other changes. Continue monitor.
[2022-06-23 04:49] VITALS: BP 133/63; PULSE 103; RESP 18; TEMP 37.2; O2SAT 94
[2022-06-23] MEDS: CYCLOBENZAPRINE 10 MG TABLET 5 MG PO (05:03)
[2022-06-23] MEDS: PANTOPRAZOLE DR 20 MG TABLET PO (05:04)
[2022-06-23 07:57] VITALS: BP 112/49; PULSE 78; RESP 16; TEMP 36.8; O2SAT 94
--- NOTE | 2022-06-23 08:21 | P.PN_ITS ---
Subjective Subjective Date Patient Seen: 06/23/22 Time Patient Seen: 08:21 Interval history: Current PO pain regimen seems to be working, pt states he is much more c omfortable today. Exam Vital Signs (past 8 hours): - 06/23/22 04:49 Temperature 99.0 F Pulse Rate 103 H Respiratory Rate 18 Blood Pressure 133/63 Pulse Oximetry 94 Oxygen Flow Rate 1 Oxygen Delivery Method Nasal Cannula Oxygen Flow Rate 1 Objective Labs Result Diagrams: 06/22/22 05:15 PFS Medical History (Updated 06/23/22 @ 08:22 by Senia Parada PA-C) Acid reflux Easy bruisability Enlarged prostate HLD (hyperlipidemia) HTN (hypertension) Neuropathy Osteoarthritis Precancerous skin lesion RBBB (right bundle branch block) Spinal stenosis Surgical History (Updated 06/23/22 @ 08:22 by Senia Parada PA-C) History of cervical spinal surgery History of lumbar fusion (~2012) History of lumbar surgery Hx of appendectomy Hx of bilateral cataract extraction Hx of oral surgery (~11/2021) Hx of tonsillectomy Social History household members: spouse Smoking Status: Former smoker alcohol intake: current Assessment & Plan Post-op Assessment and plan (1) S/P lumbar fusion: Assessment and Plan narrative: PT today, plan for discharge home tomorrow if adequate progress w/ PT and continued good pain control w/ oral meds. (2) Enlarged prostate: Assessment and Plan narrative: Receiving tamsulosin as at home. Continue straight cath PRN. Postoperative Procedures: Procedures Operation Date: 06/21/22 07:45 Actual Procedure Side Surgeon p L2-3,L3-4 TLIF w. posterior instrumentation, L4-S1 HWR, L2-S1 PSF w, instrumentation -Robot Not Applicable Aishwarya Damico MD Quality VTE Deep Vein Thrombosis/Pulmonary Embolism Present on Admission: No
--- NOTE | 2022-06-23 08:24 | PM.PNPO.1 ---
Subjective Subjective Date Patient Seen: 06/23/22 Time Patient Seen: 08:25 Interval history: Pain is moderate. Patient was not able to participate due to pain yesterday evening. Patient states he is feeling better this morning. No fever chills. No nausea vomiting. Otherwise without complaints. Exam Vital Signs (past 8 hours): - 06/23/22 04:49 Temperature 99.0 F Pulse Rate 103 H Respiratory Rate 18 Blood Pressure 133/63 Pulse Oximetry 94 Oxygen Flow Rate 1 Oxygen Delivery Method Nasal Cannula Oxygen Flow Rate 1 Narrative Exam Narrative: 81-year-old male sitting in bedside chair having breakfast. Patient is in no apparent distress. Dressing is Clean, dry, intact.. Motor function intact bilateral lower extremities. Const General: cooperative and comfortable Orientation: alert Resp Effort & Inspection: normal respiratory effort Objective Labs Result Diagrams: 06/22/22 05:15 PFS Medical History Acid reflux Easy bruisability Enlarged prostate HLD (hyperlipidemia) HTN (hypertension) Neuropathy Osteoarthritis Precancerous skin lesion RBBB (right bundle branch block) Spinal stenosis Surgical History History of cervical spinal surgery History of lumbar fusion (~2012) History of lumbar surgery Hx of appendectomy Hx of bilateral cataract extraction Hx of oral surgery (~11/2021) Hx of tonsillectomy Social History household members: spouse Smoking Status: Former smoker alcohol intake: current Assessment & Plan Post-op Postoperative Procedures: Procedures Operation Date: 06/21/22 07:45 Actual Procedure Side Surgeon p L2-3,L3-4 TLIF w. posterior instrumentation, L4-S1 HWR, L2-S1 PSF w, instrumentation -Robot Not Applicable Aishwarya Damico MD Postoperative day: 2 Postoperative status: marginal pain control Postoperative status narrative: Patient stable status post lumbar fusion Postoperative plan: routine post-op care Postoperative plan narrative: Multimodal pain management Mobilize with physical therapy, limit bending, twisting, lifting Disposition, likely home tomorrow. Quality VTE Deep Vein Thrombosis/Pulmonary Embolism Present on Admission: No
[2022-06-23] MEDS: DOCUSATE 100 MG CAPSULE PO ×2 (08:30→20:03)
[2022-06-23] MEDS: FUROSEMIDE 20 MG TABLET PO (08:30)
[2022-06-23] MEDS: TRAMADOL 50 MG TABLET PO ×3 (08:30→20:03)
[2022-06-23] MEDS: MAGNESIUM HYDROXIDE 30 ML UDC PO (08:30)
[2022-06-23] MEDS: ACETAMINOPHEN 325 MG TABLET 650 MG PO (08:31)
[2022-06-23] MEDS: PREGABALIN 50 MG CAPSULE PO (08:31)
[2022-06-23] MEDS: ATORVASTATIN 20 MG TABLET PO (08:31)
--- NOTE | 2022-06-23 10:50 | PT.IPTN ---
Current Diagnoses Spondylolisthesis, lumbar region (06/21/22) Spinal stenosis, lumbar region with neurogenic claudication (06/21/22) Surgery Performed Operation Date: 06/21/22 07:45 Actual Procedures p L2-3,L3-4 TLIF w. posterior instrumentation, L4-S1 HWR, L2-S1 PSF w, instrumentation -Robot(Not Applicable) - Aishwarya Damico MD Physical Therapy Treatment Note M2 PT-IP Current Condition Start: 06/22/22 12:35 Freq: NEEDED Status: Active Protocol: Document 06/22/22 09:55 AB (Rec: 06/22/22 12:48 AB [id number]) Physical Therapy Current Condition Current Condition Evaluation Date 06/22/22 Treatment Diagnosis s/p L2-3, L3-4 TLIF; difficulty in walking Onset Date 06/21/22 M3 PT-IP Subjective Start: 06/22/22 12:35 Freq: NEEDED Status: Active Protocol: Document 06/23/22 10:35 KS (Rec: 06/23/22 12:20 KS [id number]) Subjective Physical Therapy Visit Type Type Treatment Note Visit Start Time 10:35 Visit Stop Time 10:50 Total Visit Minutes 15 Notes Partial co treat w/ OT Number of PRINTER SLOTTER OPERATOR Visits 1 Therapy Pain Assessment Pain When Pain Assessed During Mobility Pain Present Pain Present Pain Reported Location Lower Back Intensity 3 Scale Used Numeric (0 - 10) Pain Behaviors Guarding Pain Management Techniques Timing of Activity with Medications M4 PT-IP Mobility and Gait Start: 06/22/22 12:35 Freq: NEEDED Status: Active Protocol: Document 06/23/22 10:35 KS (Rec: 06/23/22 12:20 KS [id number]) PT-Transfer Assessment Sit to and From Stand Sit to and from Stand Minimal Assistance,2 Person Assistance,Use of Upper Extremities Equipment Transfer Assistive Device Gait Belt,Front Wheeled Walker Orthotic/Prosthetic Devices or Brace: No Transfers Transfer Destination Chair Transfer Technique Pt ambulated w/ FWW Transfer Ability Level of Assist Minimal Assistance,1 Person Assistance,2 Person Assistance ,Use of Upper Extremities Comments Mobility Comments Pt in bathroom upon arrival and agreeable to ambulate following. Required Min A w/ use of hand rail for sit<> Stand w/ FWW. Pt then ambulated ~10 ft to sink to perform hand hygiene. Pt presents w/ shufflng gait and flexed posture, requires cues for FWW mgmt. He was able to tolerate additional 25 ft ambulation but refused stair training at this time due to fatigue. Pt returned to chair, Min A for slow descent. Performed 1x10 bilateral ankle pumps, LAQs, and glute sets w / increased pain when performing w/ RLE. Pt left in chair w/ OT in room. Gait Assessment Gait Gait Assistance Required: Minimum Assistance,1 Person Assist Distance (Feet) 35 Assistive Devices Assistive Device Gait Belt,Front Wheeled Walker Gait Deviations General Gait Pattern Antalgic,Decreased Stride Length,Decreased Feet Clearance,Flexed Trunk Factors Limiting Gait Function Factors Limiting Gait Function Decreased Activity Tolerance, Decreased Sensation,Decreased Strength,Incoordination, Limited Range of Motion,Pain, Poor Balance,Poor Safety Awareness Comments Gait Comments Please refer to mobility section for details. Stair Climbing Assessment Comments Stair Climbing Comments Pt refused due to fatigue. PT-Balance Assessment Sitting Balance and Reactions Static Sitting Balance Ability Good Dynamic Sitting Balance Ability Fair Standing Balance and Reactions Static Standing Balance Ability Fair Dynamic Standing Balance Ability Poor Device Used FWW M5 PT-IP Objective Assessments Start: 06/22/22 12:35 Freq: NEEDED Status: Active Protocol: Document 06/22/22 09:55 AB (Rec: 06/22/22 12:48 AB [id number]) Orientation Orientation/Cognition Level of Alertness Lethargic Language Function Ability Hard of Hearing Safety Awareness Decreased Safety Awareness Memory Description Short Term Impaired Gross Range of Motion Lower Extremity ROM Assessment Within Functional Limits Strength Comments Strength Comments LLE: 4-/5 RLE: 3+/5 Coordination Assessment Gross Coordination Gross Coordination WNL Sensation Assessment Sensation Gross Sensation Right LE Impaired,Left LE Impaired Sensation Description Numbness Comments Sensation Comments chronic LE neuropathy Muscle Tone Muscle Tone WNL Yes M6 PT-IP Treatment Start: 06/22/22 12:35 Freq: NEEDED Status: Active Protocol: Document 06/23/22 10:35 KS (Rec: 06/23/22 12:20 KS [id number]) Physical Therapy Treatment Exercises Exercises Ankle Pumps,Gluteal Sets,Quad Sets Education Education Provided Precautions,Weight Bearing Status,Post-Op Packet,Safety M7 PT-IP Assessment and Plan Start: 06/22/22 12:35 Freq: NEEDED Status: Active Protocol: Document 06/23/22 10:35 KS (Rec: 06/23/22 12:20 KS [id number]) PT Summary Assessment and Plan Potential Rehabilitation Potential Fair Summary Impairments Pain,ROM,Strength,Balance, Coordination,Sensation,Tone, Cognition,Bed Mobility, Transfers,Gait,Activity Tolerance Progress Towards Goals Slow Progress due to Pain,Slow Progress due to Activity Tolerance Assessment Summary Pt slowly progressing, but continues to require Min A x1- 2 for transfers and is limited by low actvity tolerance. Able to ambulate ~35 ft w/ FWW w/ minimal ground clearance and frequent cues for proper FWW use and upright posture. Pt w/ quick approach to fatigue w/ ambulation and exercises. Will continue to assess progress. If pt goes home, he will need to complete stair training and caregiver training. At this time however he would benefit from SNF to improve strength and mobility independence. Goals Bed Mobility Goal Minimal Assistance Transfer Goal Minimal Assistance,Front Wheeled Walker Gait Goal Minimal Assistance,Front Wheel Walker Gait Distance 50 Other Goals improve bed mobility, transfers using FWW and ambulation using FWW 200ft SBA up/down 2 platform steps using FWW SBA Days to Meet Goals 10 Frequency of Treatment Frequency Of Treatment Twice a Day Treatment Plan Physical Therapy Treatment Plan Bed Mobility Training,Transfer Training,Gait Training, Therapeutic Exercise,Balance Retraining,Post Op Education, Discharge Planning,Hot or Cold Pack,Neuromuscular Re-ed, Coordination Retraining,Manual Therapy Precautions Lumbar Precautions Log Roll,No Twisting,Limit Bending,Lifting Restriction of 10 lbs,Gait Belt above Incisional Area Recommendations To Nursing Amount of Assist Needed 1 Person Assist Discharge Recommendations PT Discharge Recommendations SNF Rehab Transportation Needs at Discharge Private Vehicle,Wheelchair/ Cabulance
--- NOTE | 2022-06-23 12:22 | PC.NURSE ---
Day shift: In/out cath at approx 1200 today by OSMANI llamas/ 300mls clear/dark urine. Pt encouraged to increase water intake. Call light in reach. Spouse in room for support.
--- NOTE | 2022-06-23 13:28 | OT.IP.TRT ---
Current Diagnoses Spondylolisthesis, lumbar region (06/21/22) Spinal stenosis, lumbar region with neurogenic claudication (06/21/22) Surgery Performed Operation Date: 06/21/22 07:45 Actual Procedures p L2-3,L3-4 TLIF w. posterior instrumentation, L4-S1 HWR, L2-S1 PSF w, instrumentation -Robot(Not Applicable) - Aishwarya Damico MD Occupational Therapy Treatment Note M2 OT-IP Current Condition Start: 06/23/22 12:41 Freq: Status: Active Protocol: Document 06/23/22 10:35 [facility] (Rec: 06/23/22 13:08 [facility] [id number]) Occupational Therapy Current Condition Current Condition Evaluation Date 06/23/22 Treatment Diagnosis S/p L2-3, L3-4, L4-5 HWR L2-S1 PSF Diagnosis Onset Date 06/21/22 Post Operative Precautions Lumbar Precautions Log Roll,No Twisting,Limit Bending,Lifting Restriction of 10 lbs,Gait Belt above Incisional Area M3 OT- IP Subjective and Pain Start: 06/23/22 12:41 Freq: Status: Active Protocol: Document 06/23/22 10:35 [facility] (Rec: 06/23/22 13:08 [facility] [id number]) OT- Subjective Occupational Therapy Visit Type Type Initial Evaluation Visit Start Time 10:35 Visit Stop Time 11:03 Total Visit Minutes 28 Occupational Therapy Visit Comments Patient Comments Pt in the bathroom when OT came to work with the pt. Patient/Caregiver Goals To go home. OT Pain Assessment Pain When Pain Assessed During Mobility Pain Present Pain Present Pain Reported Location Lower Back Intensity 3 Scale Used Numeric (0 - 10) M4 OT- IP ADL's Start: 06/23/22 12:41 Freq: Status: Active Protocol: Document 06/23/22 10:35 [facility] (Rec: 06/23/22 13:08 [facility] [id number]) OT [id number] Comments OT Self-Feeding Comments Not at meal time. OT ADL-Grooming General Evaluation Grooming Ability Standby Assistance Areas Needing Assistance Retrieving/Set-up of Grooming Items Comments OT Grooming Comments Too tired to stand and had to perform while seated. OT ADL-Oral Care General Eval Oral Care Ability Standby Assistance Areas of Assistance Retrieving/Set-Up of Items Comments Oral Care Comments while seated OT ADL-Dressing General Eval Lower Body Dressing Ability Contact Guard Assistance, Maximum Assistance Comments OT Dressing Comments Pt not able to comfortable cross his legs to do LB dressing needs like before. Pt insistent that his can assist. Able to show pt and have pt practice LB dressing equipment. OT ADL-Toileting General Evaluation Toileting Ability Moderate Assistance,Maximum Assistance Comments OT Toileting Comments Pt unable to reach in order to wipe at this time and also needing assist for clothing management needs. OT ADL-Bathing Comments OT Bathing Comments Pt too tired to attempt, pt if having to go home would benefit form a shower chair. M5 OT- IP IADL's Start: 06/23/22 12:41 Freq: Status: Active Protocol: Document 06/23/22 10:35 [facility] (Rec: 06/23/22 13:08 [facility] [id number]) OT-Instrumental Activities of Daily Living Home Safety Awareness Home Safety Comments Pt states his to assist with his needs. Meal Preparation Meal Preparation Caregiver Provides Assist Washery Engineer Washery Engineer Caregiver Provides Assist M6 OT- IP Functional Cognition Start: 06/23/22 12:41 Freq: Status: Active Protocol: Document 06/23/22 10:35 [facility] (Rec: 06/23/22 13:08 [facility] [id number]) Cognitive Factors Limiting Selfcare Function Cognitive Ability Level of Alertness Alert Patient Orientation Name,Place,Situation Attention Span Ability Capable of Focused Attention, Capable of Sustained Attention Ability to Follow Commands Able to Follow One Step Commands with Increased Time, Able to Follow One Step Commands with Repetition Safety Awareness Decreased Recall of Precautions,Decreased Ability to Apply Precautions Cognitive Comments Cognitive Assessment Comments Pt needing cues to follow his back precautions and to be sure to reach back with his hands before sitting down. Pt needing reminders to recall his back precautions at this time. M7 OT- IP Mobility and Balance Start: 06/23/22 12:41 Freq: Status: Active Protocol: Document 06/23/22 10:35 [facility] (Rec: 06/23/22 13:08 [facility] [id number]) OT-Transfer Assessment Sit to and From Stand Sit to and from Stand Minimal Assistance,1 Person Assistance,2 Person Assistance Transfers Transfer Ability Minimal Assistance,1 Person Assistance,2 Person Assistance Technique Transfer Destination Chair,Toilet Devices Transfer Assistive Devices Gait Belt,Front Wheeled Walker Comments Mobility Comments Pt needing assist to keep the FWW in front of him and feet in between the walker. At time pt is unsteady on his feet and needing from 1-2 person for safety at this time. OT- Balance Assessment Sitting Balance and Reactions Static Sitting Balance Ability Good Dynamic Sitting Balance Ability Fair Standing Balance and Reactions Static Standing Balance Ability Fair Dynamic Standing Balance Ability Poor M8 OT- IP Objective Assessments Start: 06/23/22 12:41 Freq: Status: Active Protocol: Document 06/23/22 10:35 [facility] (Rec: 06/23/22 13:08 [facility] [id number]) OT-Muscle Tone Assessment Muscle Tone WNL Yes M9 OT- IP Assessment and Plan Start: 06/23/22 12:41 Freq: Status: Active Protocol: Document 06/23/22 10:35 [facility] (Rec: 06/23/22 13:08 [facility] [id number]) OT Summary Assessment and Plan Potential Rehabilitation Potential Good Analytic Complexity at Evaluation Low Summary OT Impairments Pain,Balance,Functional Mobility,Grooming,Dressing, Toileting,Bathing,Toilet Transfers,Shower Transfers, Activity Tolerance Progress Towards Goals Progressing Toward Goals,Slow Progress due to Activity Tolerance Assessment Summary Pt low complexity and main barriers are steps, decreased activity tolerance, pain, and needing cues for safety and incorporation for his back precautions. Pt at this time will benefit from a short skilled stay pending caregiver training with his . Goals Grooming Goal Independent Dressing Goal Independent Toileting Goal Minimal Assistance Bathing Goal Contact Guard Assistance Toilet Transfer Goal Independent Shower Transfer Goal Independent Days to Meet Goals 28 Frequency of Treatment Frequency Of Treatment Once a Day Treatment Plan OT Treatment Plan ADL Training,Functional Mobility,Patient/Family Education,Discharge Planning Discharge Recommendations OT Discharge Recommendations SNF Rehab Transportation Needs at Discharge Wheelchair/Cabulance
--- NOTE | 2022-06-23 13:57 | PT.IPTN ---
Current Diagnoses Spondylolisthesis, lumbar region (06/21/22) Spinal stenosis, lumbar region with neurogenic claudication (06/21/22) Surgery Performed Operation Date: 06/21/22 07:45 Actual Procedures p L2-3,L3-4 TLIF w. posterior instrumentation, L4-S1 HWR, L2-S1 PSF w, instrumentation -Robot(Not Applicable) - Aishwarya Damico MD Physical Therapy Treatment Note M2 PT-IP Current Condition Start: 06/22/22 12:35 Freq: NEEDED Status: Active Protocol: Document 06/22/22 09:55 AB (Rec: 06/22/22 12:48 AB [id number]) Physical Therapy Current Condition Current Condition Evaluation Date 06/22/22 Treatment Diagnosis s/p L2-3, L3-4 TLIF; difficulty in walking Onset Date 06/21/22 M3 PT-IP Subjective Start: 06/22/22 12:35 Freq: NEEDED Status: Active Protocol: Document 06/23/22 13:37 KS (Rec: 06/23/22 14:44 KS [id number]) Subjective Physical Therapy Visit Type Type Treatment Note Visit Start Time 13:37 Visit Stop Time 13:57 Total Visit Minutes 20 Notes Pts present Number of TONE CABINET ASSEMBLER Visits 2 Therapy Pain Assessment Pain When Pain Assessed During Mobility Pain Present Pain Present Pain Reported Location Lower Back Intensity 2 Scale Used Numeric (0 - 10) Pain Behaviors Guarding Pain Management Techniques Timing of Activity with Medications M4 PT-IP Mobility and Gait Start: 06/22/22 12:35 Freq: NEEDED Status: Active Protocol: Document 06/23/22 13:37 KS (Rec: 06/23/22 14:44 KS [id number]) PT-Transfer Assessment Sit to and From Stand Sit to and from Stand Moderate Assistance,1 Person Assistance,Use of Upper Extremities Equipment Transfer Assistive Device Gait Belt,Front Wheeled Walker Orthotic/Prosthetic Devices or Brace: No Transfers Transfer Destination Chair Transfer Technique Pt ambulated w/ FWW Transfer Ability Level of Assist Moderate Assistance,1 Person Assistance,Use of Upper Extremities Comments Mobility Comments Pt in chair upon arrival and in room. Demonstrated gait belt application to pts , who was able to perform. Also demonstrated proper guarding and assist technique for pt sit<>stand w/ FWW, he required Mod A this PM. Pt ambulated ~10 ft and then ascended/descended step stool w/ FWW x2 w/ Min A and cues for sequencing. Pts was able to assist on second attempt. Pt reported fatigue and requestd to sit back in chair, ambulated 10 ft back to chair Min A for slow descent. Gait Assessment Gait Gait Assistance Required: Minimum Assistance,1 Person Assist Distance (Feet) 20 Assistive Devices Assistive Device Gait Belt,Front Wheeled Walker Gait Deviations General Gait Pattern Antalgic,Decreased Stride Length,Decreased Feet Clearance,Flexed Trunk Factors Limiting Gait Function Factors Limiting Gait Function Decreased Activity Tolerance, Decreased Sensation,Decreased Strength,Incoordination, Limited Range of Motion,Pain, Poor Balance,Poor Safety Awareness Comments Gait Comments Pt higher risk of falls due to very minimal ground clearance and short step length. Stair Climbing Assessment Evaluation Level of Assist On Stairs Minimal Assistance,1 Person Assistance Devices Stair Climbing Assistive Devices Front Wheel Walker Technique/Endurance Stair Climbing Direction Ascend and Descend Stair Climbing Technique Step to Step Number of Steps Climbed 1 Stair Climbing Set # Repetitions (reps) 2 Comments Stair Climbing Comments Pts assisted on second attempt. Cues for safety, sequencing, and proper use of FWW. PT-Balance Assessment Sitting Balance and Reactions Static Sitting Balance Ability Good Dynamic Sitting Balance Ability Fair Standing Balance and Reactions Static Standing Balance Ability Fair Dynamic Standing Balance Ability Fair Device Used FWW M5 PT-IP Objective Assessments Start: 06/22/22 12:35 Freq: NEEDED Status: Active Protocol: Document 06/22/22 09:55 AB (Rec: 06/22/22 12:48 AB [id number]) Orientation Orientation/Cognition Level of Alertness Lethargic Language Function Ability Hard of Hearing Safety Awareness Decreased Safety Awareness Memory Description Short Term Impaired Gross Range of Motion Lower Extremity ROM Assessment Within Functional Limits Strength Comments Strength Comments LLE: 4-/5 RLE: 3+/5 Coordination Assessment Gross Coordination Gross Coordination WNL Sensation Assessment Sensation Gross Sensation Right LE Impaired,Left LE Impaired Sensation Description Numbness Comments Sensation Comments chronic LE neuropathy Muscle Tone Muscle Tone WNL Yes M6 PT-IP Treatment Start: 06/22/22 12:35 Freq: NEEDED Status: Active Protocol: Document 06/23/22 13:37 KS (Rec: 06/23/22 14:44 KS [id number]) Physical Therapy Treatment Education Education Provided Precautions,Weight Bearing Status,Post-Op Packet,Safety M7 PT-IP Assessment and Plan Start: 06/22/22 12:35 Freq: NEEDED Status: Active Protocol: Document 06/23/22 13:37 KS (Rec: 06/23/22 14:44 KS [id number]) PT Summary Assessment and Plan Potential Rehabilitation Potential Fair Summary Impairments Pain,ROM,Strength,Balance, Coordination,Sensation,Tone, Cognition,Bed Mobility, Transfers,Gait,Activity Tolerance Progress Towards Goals Slow Progress due to Pain,Slow Progress due to Activity Tolerance Assessment Summary Pt continues to be limited by weakness and low tolerance for activity. Pts was able to assist w/ sit<>Stand, ambulation, step stool today but pt unable to perform bed mobility due to fatigue. Continued caregiver training scheudled for 9 AM on 06/24. Pt and hopeful to return home, however pt still requires Mod A, is increased risk of falls, and requires safety cues frequently. Goals Bed Mobility Goal Minimal Assistance Transfer Goal Minimal Assistance,Front Wheeled Walker Gait Goal Minimal Assistance,Front Wheel Walker Gait Distance 50 Other Goals improve bed mobility, transfers using FWW and ambulation using FWW 200ft SBA up/down 2 platform steps using FWW SBA Days to Meet Goals 10 Frequency of Treatment Frequency Of Treatment Twice a Day Treatment Plan Physical Therapy Treatment Plan Bed Mobility Training,Transfer Training,Gait Training, Therapeutic Exercise,Balance Retraining,Post Op Education, Discharge Planning,Hot or Cold Pack,Neuromuscular Re-ed, Coordination Retraining,Manual Therapy Precautions Lumbar Precautions Log Roll,No Twisting,Limit Bending,Lifting Restriction of 10 lbs,Gait Belt above Incisional Area Recommendations To Nursing Amount of Assist Needed 1 Person Assist Discharge Recommendations PT Discharge Recommendations Home with 14/03 Assist Available,Home Health,SNF Rehab Transportation Needs at Discharge Private Vehicle,Wheelchair/ Cabulance
--- NOTE | 2022-06-23 14:28 | CM.DPC ---
DCP Home with HH planning Per Ortho PA, pt making progress but not yet stable for d/c today and to work more with PT/OT. Per PT/OT, current recommendation is SNF but anticipate pt will progress enough for safe d/c to home with spouse assist and HH. SW met bedside with pt and spouse and explained role and discussed SNF recommendation and both confirm their preference is home and feel they can safely manage with their family and friend assist and SW discussed backup plan of SNF as pt would need insurance auth but spouse declines SNF at this time but did review SNF Choice list. SW discussed HH and pt and spouse very agreeable and reviewed HH CHoice list and no preference and feel once pt completes stair training for their one step to enter then once he is inside the house they do not have any concerns. SW made [facility] referral based on Vendor Calendar and F2F completed and scanned into the chart. Plan: SW to follow for further CG/stairs training with spouse and PT to confirm plan of home with spouse and neighbor assist and new [facility]. Jessica Llamas MSW
[2022-06-23 14:45] VITALS: BP 94/47; PULSE 87; RESP 16; TEMP 36.7; O2SAT 94
[2022-06-23] MEDS: polyethylene glycoL 3350 17 GM POWD.PACK PO ×2 (15:08→15:58)
[2022-06-23 18:22] VITALS: BP 102/50; PULSE 106; RESP 16; TEMP 36.7; O2SAT 94
[2022-06-23] MEDS: BISACODYL 10 MG SUPP PR (18:48)
[2022-06-23 20:00] VITALS: BP 111/46; PULSE 102; RESP 17; TEMP 36.7; O2SAT 95
[2022-06-23 20:03] VITALS: BP 102/50; PULSE 106
[2022-06-23] MEDS: lisinopriL 20 MG TABLET PO (20:03)
[2022-06-23] MEDS: TAMSULOSIN 0.4 MG CAPSULE 0.8 MG PO (20:03)
[2022-06-23] MEDS: SENNOSIDES 8.6 MG TABLET 17.2 MG PO (20:03)
[2022-06-23] MEDS: SODIUM CHLORIDE 0.9% FLUSH 10 ML IV (20:10)
[2022-06-23] MEDS: SODIUM CHLORIDE 0.9% 500 ML IV (21:01)
[2022-06-24] VITALS: BP 124/54; PULSE 93; RESP 23; TEMP 37.2; O2SAT 95
[2022-06-24] MEDS: polyethylene glycoL 3350 17 GM POWD.PACK PO (00:18)
[2022-06-24] MEDS: ACETAMINOPHEN 325 MG TABLET 650 MG PO (00:59)
[2022-06-24 04:28] VITALS: BP 129/59; PULSE 92; RESP 20; TEMP 36.6; O2SAT 96
--- NOTE | 2022-06-24 05:03 | PC.NURSE ---
Pt is AxOx4, needs 1 person assistance and cooperative. VSS, pt c/o constipation and recieved suppository in the evening as well as his scheduled bowel med. Pt was retaining urine since yesterday so bladder scanned twice; It was 137 ml around 8 pm and 187 ml around mid night. MD is called for pt's constipation and retaining issues so MD ordered 500ml NS bolus once. Pt had L BM after recieved bolus and urinating in the toilet. Pt had several BM overnight. Pt requested PRN Tylenol once at midnight with good effect. No other changes.
[2022-06-24] MEDS: PANTOPRAZOLE DR 20 MG TABLET PO (05:23)
[2022-06-24 07:30] VITALS: BP 122/71; PULSE 100; RESP 16; TEMP 36.5; O2SAT 97
--- NOTE | 2022-06-24 07:50 | PM.DS.1 ---
History of Present Illness History of Present Illness Date Patient Seen: 06/24/22 Time Patient Seen: 07:50 Chief complaint: Back pain Narrative: Pain is moderate. Denies fever or chills. No nausea or vomiting. Patient has his home and available to assist him. Discharge Providers Provider Date of admission: 06/21/22 06:29 Discharge Date: 06/24/22 Primary care physician: Roly Savage MD Consults: 06/21/22 16:17 Consult to Occupational Therapy Evaluate & Treat Comment: Physician Instructions: Evaluate and treat Consult to Physical Therapy Evaluate & Treat Comment: Physician Instructions: Evaluate and Treat Discharge provider: Henry Mueller PA-C Summary Hospital Course Discharge Diagnosis: 1. L2-3, L3-4, L4-5 spinal stenosis 2. Hx of L4-5, L5-S1 fusion with instrumentation 3. Lumbar spondylosis with radiculopathy Hospital Course: Pre-op diagnosis: 1. L2-3, L3-4, L4-5 spinal stenosis 2. Hx of L4-5, L5-S1 fusion with instrumentation 3. Lumbar spondylosis with radiculopathy Post-op diagnosis: same Procedure & Clinicians Procedure: 1. L2-3, L3-4 Postero-lateral and posterior interbody fusion 2. L2-3, L3-4 interbody cage placement. 3. L2-3, L3-4 decompressive laminectomy with bilateral facetecomies 4. L2-3, L3-4, L4-5 Posterior segmental instrumentation 5. L4-5, L5-S1 posterior segmental hardware removal 6. L4-5, L5-S1 exploration of fusion with left hemilaminectomy 7. L4-5 posterolateral fusion 8. [place] of bone marrow from iliac crest 9. Utilization of microsurgical technique and operating microscope 10. Utilization of robotic navigation Same procedure as scheduled: Yes Indications: Patient has been having chronic back pain and worsening lumbar radiculopathy and symptoms of neurogenic claudication. Patient failed multiple conservative management with worsening pain weakness and numbness in his lower extremity.? Patient has been having difficulty performing activity of daily living.? After discussing risks benefits of treatment options, patient elected proceed with surgery. Surgeon: Aishwarya Damico Box Builder: Senia Parada Click Yes if Unassisted: No Anesthesia Type: General Operative Notes Closure Type: primary Specimen(s): none sent Prosthetic devices, grafts, tissues, transplants, or devices: Globus CREO MIS screws, Rise cages Applied: catheter Estimated Blood Loss (mL): 250 Blood products transfused: none Patient admitted to the hospital for the above-mentioned procedure. Patient taken to the operating room after consent is given underwent lumbar fusion. Patient back in his room recovering well as in stable condition. Patient has been slow to mobilize partially due to pain control issues. Patient will be discharged home today in stable condition. Status at Discharge Cognitive/behavioral status at discharge: oriented Functional status at discharge: uses cane/walker Overall status at discharge: patient is progressing back to baseline Time Spent with Patient Time spent: Less than 30 minutes Exam Vital Signs (past 8 hours): - 06/24/22 00:00 06/24/22 04:28 Temperature 99.0 F 97.9 F Pulse Rate 93 H 92 H Respiratory Rate 23 20 Blood Pressure 124/54 L 129/59 L Pulse Oximetry 95 96 Oxygen Delivery Method Room Air Oxygen Flow Rate 0 Narrative Exam Narrative: Pleasant 81-year-old male resting comfortably in bed no apparent distress. Motor functions intact bilateral lower extremities. Moderate amount of drainage noted on the dressing dressing will be changed prior to discharge. Const General: cooperative and comfortable Orientation: alert Objective Labs Result Diagrams: 06/22/22 05:15 [facility] Medical History Acid reflux Easy bruisability Enlarged prostate HLD (hyperlipidemia) HTN (hypertension) Neuropathy Osteoarthritis Precancerous skin lesion RBBB (right bundle branch block) Spinal stenosis Surgical History History of cervical spinal surgery History of lumbar fusion (~2012) History of lumbar surgery Hx of appendectomy Hx of bilateral cataract extraction Hx of oral surgery (~11/2021) Hx of tonsillectomy Social History household members: spouse Smoking Status: Former smoker alcohol intake: current Discharge Assessment & Plan Assessment and Plan Assessment: Patient progressing as expected status post lumbar fusion Plan of Treatment: Mobilize with physical therapy, limit bending, twisting, lifting Multimodal pain management Discharge home today after physical therapy. Discharge Plan Discharge Plan Patient Disposition: Home Discharge orders & Medications Prescriptions: New polyethylene glycol 3350 17 gram Powder In Packet 17 g PO DAILY PRN (Reason: constipation) Qty: 14 0RF oxycodone 5 mg Tablet 5 mg PO Q3HR PRN (Reason: Pain, Severe (7-10)) Qty: 30 0RF Rx Instructions: 1 tablet every 3 hours as needed for breakthrough pain acetaminophen 325 mg Tablet 650 mg PO Q6HR PRN (Reason: Pain, Mild (1-3)) Qty: 60 0RF tramadol 50 mg Tablet 50 mg PO QID Qty: 60 0RF Continued lisinopril 20 mg Tablet 20 mg PO BEDTIME rosuvastatin [Crestor] 10 mg Tablet 10 mg PO QAM tamsulosin 0.4 mg Capsule 0.8 mg PO BEDTIME baclofen 10 mg Tablet 10 mg PO BEDTIME PRN (Reason: Pain) omeprazole 20 mg Capsule,Delayed Release(Dr/Ec) 20 mg PO DAILY furosemide 20 mg Tablet 20 mg PO QAM tadalafil 5 mg Tablet 5 mg PO DAILY pregabalin 50 mg Capsule 50 mg PO DAILY Discontinued tramadol 50 mg Tablet 50 mg PO QID acetaminophen 500 mg Tablet 1,000 mg PO QID Follow up/Referrals: Roly Savage MD [Primary Care Provider] - Aishwarya Damico MD [Physician] - As previously scheduled (Follow up with Dr Damico on 07/06/2022 @ 2:00 pm at [employer] in [facility].) Diet/Activity/Treatments Diet: Diet as Tolerated Activity: No deep bending or twisting at the waist. No lifting more than 10 pounds. Cold/Heat Therapy: Heating pad to back as needed for pain. Skin/Wound/Dressing Care Report to your healthcare provider any signs of infection, such as:: chills, fever, night sweats, unusual drainage and unusual redness Dressing: May shower; keep dressing as dry as possible. May remove dressing if it becomes wet inside and replace with clean, dry gauze. No bathing or otherwise soaking incisions. Do not place any creams, lotions, or ointments on incisions. Visit Report/Discharge Packet Instructions: DI for Prescription Opioid Use, DI for Transforaminal Lumbar Interbody Fusion Stand Alone Forms: Surgery Discharge Discharge Data Primary Care Provider: Roly Savage Quality VTE Deep Vein Thrombosis/Pulmonary Embolism Present on Admission: No
[2022-06-24] MEDS: PREGABALIN 50 MG CAPSULE PO (08:01)
[2022-06-24] MEDS: TRAMADOL 50 MG TABLET PO (08:01)
[2022-06-24] MEDS: ATORVASTATIN 20 MG TABLET PO (08:01)
[2022-06-24] MEDS: FUROSEMIDE 20 MG TABLET PO (08:01)
[2022-06-24] MEDS: SODIUM CHLORIDE 0.9% FLUSH 10 ML IV (08:05)
--- NOTE | 2022-06-24 09:50 | OT.IP.TRT ---
Current Diagnoses Spondylolisthesis, lumbar region (06/21/22) Spinal stenosis, lumbar region with neurogenic claudication (06/21/22) Surgery Performed Operation Date: 06/21/22 07:45 Actual Procedures p L2-3,L3-4 TLIF w. posterior instrumentation, L4-S1 HWR, L2-S1 PSF w, instrumentation -Robot(Not Applicable) - Aishwarya Damico MD Occupational Therapy Treatment Note M2 OT-IP Current Condition Start: 06/23/22 12:41 Freq: Status: Discharge Protocol: Document 06/23/22 10:35 [facility] (Rec: 06/23/22 13:08 [facility] [id number]) Occupational Therapy Current Condition Current Condition Evaluation Date 06/23/22 Treatment Diagnosis S/p L2-3, L3-4, L4-5 HWR L2-S1 PSF Diagnosis Onset Date 06/21/22 Post Operative Precautions Lumbar Precautions Log Roll,No Twisting,Limit Bending,Lifting Restriction of 10 lbs,Gait Belt above Incisional Area M3 OT- IP Subjective and Pain Start: 06/23/22 12:41 Freq: Status: Discharge Protocol: Document 06/24/22 11:50 [facility] (Rec: 06/24/22 12:02 [facility] [id number]) OT- Subjective Occupational Therapy Visit Type Type Treatment Note Visit Start Time 08:53 Visit Stop Time 09:50 Total Visit Minutes 57 Occupational Therapy Visit Comments Patient Comments Pt wanting to shower, pt's there for caregiver training. Patient/Caregiver Goals TO go home. OT Pain Assessment Pain When Pain Assessed During Mobility Pain Present Pain Present Pain Reported M4 OT- IP ADL's Start: 06/23/22 12:41 Freq: Status: Discharge Protocol: Document 06/24/22 11:50 [facility] (Rec: 06/24/22 12:02 [facility] [id number]) OT [id number] Comments OT Self-Feeding Comments not at meal time OT ADL-Grooming Comments OT Grooming Comments not performed OT ADL-Oral Care Comments Oral Care Comments not performed OT ADL-Dressing General Eval Lower Body Dressing Ability Maximum Assistance Comments OT Dressing Comments Pt's able to assist pt for all LB dressing needs. Educated best to assist pt while seated and alfredo clothing over his feet and then stand and assist to pull up clothing items up one by one. OT ADL-Toileting General Evaluation Toileting Ability Maximum Assistance Comments OT Toileting Comments Assist for hygiene needs and brief management needs. OT ADL-Bathing Bathing Type Bathing Type Shower General Evaluation Bathing Ability Moderate Assistance,Maximal Assistance Areas Needing Assistance Wash/Dry Back,Wash/Dry Perineal Area,Wash/Dry Lower Extremities Comments OT Bathing Comments Pt's able to assist pt appropriate for all showering needs. M5 OT- IP IADL's Start: 06/23/22 12:41 Freq: Status: Discharge Protocol: Document 06/23/22 10:35 [facility] (Rec: 06/23/22 13:08 [facility] [id number]) OT-Instrumental Activities of Daily Living Home Safety Awareness Home Safety Comments Pt states his to assist with his needs. Meal Preparation Meal Preparation Caregiver Provides Assist Architectural Representative Architectural Representative Caregiver Provides Assist M6 OT- IP Functional Cognition Start: 06/23/22 12:41 Freq: Status: Discharge Protocol: Document 06/24/22 11:50 [facility] (Rec: 06/24/22 12:02 [facility] [id number]) Cognitive Factors Limiting Selfcare Function Cognitive Comments Cognitive Assessment Comments Pt thinking much clearer today and aware of his back precautions. Pt needing inital safety cue not to grab the FWW to stand. M7 OT- IP Mobility and Balance Start: 06/23/22 12:41 Freq: Status: Discharge Protocol: Document 06/24/22 11:50 [facility] (Rec: 06/24/22 12:02 [facility] [id number]) OT- Bed Mobility Assessment Rolling Type of Rolling Roll to Right Supine to Sit Supine to Sit Assist Standby Assistance,Bedrails Sit to Supine Sit to Supine Assist Standby Assistance OT-Transfer Assessment Sit to and From Stand Sit to and from Stand Minimal Assistance,Moderate Assistance Transfers Transfer Ability Standby Assistance,Contact Guard Assistance Technique Transfer Destination Bedside Commode,Chair,Shower Stall Devices Transfer Assistive Devices Gait Belt,Front Wheeled Walker Comments Mobility Comments Pt needing MODA to stand from lower surfaces, otherwise CGA to JODIE to stand to FWW. OT- Balance Assessment Sitting Balance and Reactions Static Sitting Balance Ability Good Dynamic Sitting Balance Ability Good Standing Balance and Reactions Static Standing Balance Ability Fair Dynamic Standing Balance Ability Fair M8 OT- IP Objective Assessments Start: 06/23/22 12:41 Freq: Status: Discharge Protocol: Document 06/23/22 10:35 [facility] (Rec: 06/23/22 13:08 [facility] [id number]) OT-Muscle Tone Assessment Muscle Tone WNL Yes M9 OT- IP Assessment and Plan Start: 06/23/22 12:41 Freq: Status: Discharge Protocol: Document 06/24/22 11:50 [facility] (Rec: 06/24/22 12:02 [facility] [id number]) OT Summary Assessment and Plan Potential Rehabilitation Potential Good Analytic Complexity at Evaluation Low Summary OT Impairments Pain,Balance,Functional Mobility,Grooming,Dressing, Toileting,Bathing,Toilet Transfers,Shower Transfers, Activity Tolerance Progress Towards Goals Progressing Toward Goals Assessment Summary Pt's able to participate in caregiver training for all dressing, showering,toileting and bed mobility needs and able to show and demonstrate good safety for his back precautions for all needs. Pt looking to go home today with home health. Goals Grooming Goal Independent Dressing Goal Independent Toileting Goal Minimal Assistance Bathing Goal Contact Guard Assistance Toilet Transfer Goal Independent Shower Transfer Goal Independent Days to Meet Goals 15 Frequency of Treatment Frequency Of Treatment Once a Day Treatment Plan OT Treatment Plan ADL Training,Functional Mobility,Patient/Family Education,Discharge Planning Discharge Recommendations OT Discharge Recommendations Home with Assistance,Home Health Transportation Needs at Discharge Private Vehicle
--- NOTE | 2022-06-24 11:19 | PC.NURSE ---
Day shift: Paperwork signed and all questions answered. Pt has all personal belongings. Dressing changed today and area shows no s/s of infection. Pt able to void and has had multiple BM's. Left unit today at approx 1115 via WC. MARVA Díaz took him to car that Pt's Spouse is driving. Pain has been well controlled per MAR.
--- NOTE | 2022-06-24 11:20 | PT-IP ANOTE ---
Attempted to see pt at 10:20, pt refused PT stating no further needs prior to d/c. Completed stair and caregiver training yesterday and has worked w/ OT this AM.
--- NOTE | 2022-06-24 12:03 | CM.DPC ---
DCP Discharge Home with HH Per Ortho PA, pt medically stable to d/c home today with HH. Per [employer], pt completed stair training and safe for d/c home with spouse assist and HH. SW called [facility] and confirmed they are aware of pt d/c home today and they have the documents needed to open pt to service possibly tomorrow. Plan: Patient to d/c home today via spouse POV and new [facility] to start services this week. NICOLETTE Perkins
== END 2022-06-24 11:25 | disposition home health service (06) | DRG 454 ==
PROVIDERS: Physician Assistant; Admitting Provider Orthopaedic Surgery Orthopaedic Surgery of the Spine; PCP Internal Medicine; Referring Provider Orthopaedic Surgery Orthopaedic Surgery of the Spine; Visit Provider Orthopaedic Surgery Orthopaedic Surgery of the Spine
PROC: 0SG10AJ Fusion of 2 or more Lumbar Vertebral Joints with Interbody Fusion Device, Posterior Approach, Anterior Column, Open Approach (ICD-10-PCS; principal; 2022-06-21 07:45)
DX: M48.062 Spinal stenosis, lumbar region with neurogenic claudication (principal); M96.0 Pseudarthrosis after fusion or arthrodesis; M41.86 Other forms of scoliosis, lumbar region; M47.26 Other spondylosis with radiculopathy, lumbar region; M96.1 Postlaminectomy syndrome, not elsewhere classified; I10 Essential (primary) hypertension; E78.5 Hyperlipidemia, unspecified; N40.0 Benign prostatic hyperplasia without lower urinary tract symptoms; K21.9 Gastro-esophageal reflux disease without esophagitis; G89.18 Other acute postprocedural pain; Z98.1 Arthrodesis status; Z87.891 Personal history of nicotine dependence; Z20.822 Contact with and (suspected) exposure to COVID-19
CPT/HCPCS: 36415; 72100; 76000; 82962; 85014; 85018; 86850; 86900; 86901; 87635; 97110; 97162; 97165; 97530; 97535; C1776; C9803; C9290; J0131; J0171; J0690; J1170; J3010; J3410

== ENCOUNTER → 2022-08-30 11:26 | Outpatient (CLI) | payer OTHER, SELFPAY ==
[2022-06-21 16:29] VITALS: BMI 33.5
[2022-08-30 13:00] LABS: Hematocrit 33.5 % (41-53); Hemoglobin 10.9 g/dL (13.5-17.5); Mean Corpuscular HGB Conc 32.4 % (30-36); Mean Corpuscular Volume 89.5 fL (80-100); Platelet Count 118 X10^3/uL (150-400); Red Blood Cell Count 3.74 X10^6/uL (4.5-5.9); Red Cell Distribution Width 14.8 % (11.6-14.8); White Blood Cell Count 4.3 X10^3/uL (4.5-11.0)
[2022-08-30 13:20] LABS: Alanine Aminotransferase 11 IU/L (<50); Albumin Globulin Ratio 1.4 (1.0-2.8); Alkaline Phosphatase 61 U/L (38-126); Aspartate Aminotransferase 20 IU/L (17-59); BUN Creatinine Ratio 20.5 (6-22); Bilirubin Total 0.3 mg/dL (0.2-1.3); Blood Urea Nitrogen 16 mg/dL (9-20); Calcium 8.3 mg/dL (8.4-10.2); Carbon Dioxide 31 mmol/L (22-32); Chloride 99 mmol/L (98-107); Cholesterol 127 mg/dL (140-199); Estimated Glomerular Filt Rate > 60 mL/min (>60); Globulin 2.9 g/dL (1.7-4.1); Glucose 93 mg/dL (80-110); HDL Cholesterol 40 mg/dL (40-60); HEMOLYSIS < 15 (0-50); LDL Cholesterol Calculated 69 mg/dL (<100); Potassium 3.7 mmol/L (3.4-5.1); Sodium 137 mmol/L (137-145); Total Protein 6.9 g/dL (6.3-8.2); Triglycerides 91 mg/dL (35-150)
[2022-08-30 13:49] LABS: Prostate Specific Antigen 0.553 ng/mL (0.10-4.00); TSH w/ Reflex to FT4 1.26 uIU/mL (0.47-4.68)
== END ==
PROVIDERS: PCP Internal Medicine; Referring Provider Internal Medicine; Visit Provider Internal Medicine
DX: E78.2 Mixed hyperlipidemia (principal); N40.1 Benign prostatic hyperplasia with lower urinary tract symptoms; I10 Essential (primary) hypertension; I87.2 Venous insufficiency (chronic) (peripheral); N13.8 Other obstructive and reflux uropathy
CPT/HCPCS: 36415; 80053; 80061; 84153; 84443; 85027

== ENCOUNTER → 2022-09-15 10:53 | Outpatient (CLI) | payer OTHER, SELFPAY ==
[2022-06-21 16:29] VITALS: BMI 33.5
[2022-09-15 11:19] LABS: Hematocrit 35.8 % (41-53); Hemoglobin 11.7 g/dL (13.5-17.5); Mean Corpuscular HGB Conc 32.6 % (30-36); Mean Corpuscular Volume 88.8 fL (80-100); Platelet Count 135 X10^3/uL (150-400); Red Blood Cell Count 4.03 X10^6/uL (4.5-5.9); Red Cell Distribution Width 14.9 % (11.6-14.8); White Blood Cell Count 5.1 X10^3/uL (4.5-11.0)
[2022-09-15 11:33] LABS: Iron 70 ug/dL (49-181)
[2022-09-15 11:40] LABS: BUN Creatinine Ratio 25.3 (6-22); Blood Urea Nitrogen 19 mg/dL (9-20); Calcium 8.5 mg/dL (8.4-10.2); Carbon Dioxide 29 mmol/L (22-32); Chloride 98 mmol/L (98-107); Estimated Glomerular Filt Rate > 60 mL/min (>60); Glucose 95 mg/dL (80-110); HEMOLYSIS < 15 (0-50); Potassium 4.2 mmol/L (3.4-5.1); Sodium 136 mmol/L (137-145)
[2022-09-15 11:42] LABS: Transferrin 240 mg/dL (206-381)
[2022-09-15 12:08] LABS: Ferritin 56 ng/mL (18-464)
[2022-09-15 12:22] LABS: Vitamin B12 413 pg/mL (239-931)
[2022-09-15 14:52] LABS: HEMOLYSIS 16 (0-50); Percent Iron Saturation 20 % (20-50); Total Iron Binding Capacity 347 ug/dL (261-462)
== END ==
PROVIDERS: PCP Internal Medicine; Referring Provider Internal Medicine; Visit Provider Internal Medicine
DX: D64.9 Anemia, unspecified (principal); I10 Essential (primary) hypertension; I87.2 Venous insufficiency (chronic) (peripheral); E53.8 Deficiency of other specified B group vitamins
CPT/HCPCS: 36415; 80048; 82607; 82728; 83540; 83550; 85027

== ENCOUNTER → 2022-12-01 11:43 | Outpatient (CLI) | payer OTHER, SELFPAY ==
[2022-06-21 16:29] VITALS: BMI 33.5
[2022-12-01 13:31] LABS: BUN Creatinine Ratio 26.6 (6-22); Blood Urea Nitrogen 21 mg/dL (9-20); Carbon Dioxide 32 mmol/L (22-32); Chloride 99 mmol/L (98-107); Estimated Glomerular Filt Rate > 60 mL/min (>60); Glucose 99 mg/dL (80-110); HEMOLYSIS < 15 (0-50); Magnesium 2.1 mg/dL (1.6-2.3); Potassium 4.4 mmol/L (3.4-5.1); Sodium 137 mmol/L (137-145)
== END ==
PROVIDERS: PCP Internal Medicine; Referring Provider Internal Medicine; Visit Provider Internal Medicine
DX: E83.42 Hypomagnesemia (principal); I10 Essential (primary) hypertension
CPT/HCPCS: 36415; 80048; 83735

== ENCOUNTER → 2023-01-21 16:58 | Outpatient (CLI) | payer MEDICARE, SELFPAY ==
[2022-06-21 16:29] VITALS: BMI 33.5
[2023-01-21 17:48] LABS: Hematocrit 36.6 % (41-53); Hemoglobin 12.4 g/dL (13.5-17.5); Mean Corpuscular HGB Conc 33.9 % (30-36); Mean Corpuscular Volume 91.5 fL (80-100); Platelet Count 144 X10^3/uL (150-400); Red Cell Distribution Width 14.4 % (11.6-14.8); White Blood Cell Count 5.5 X10^3/uL (4.5-11.0)
[2023-01-21 18:02] LABS: BUN Creatinine Ratio 27.8 (6-22); Blood Urea Nitrogen 22 mg/dL (9-20); Calcium 8.6 mg/dL (8.4-10.2); Carbon Dioxide 32 mmol/L (22-32); Chloride 97 mmol/L (98-107); Estimated Glomerular Filt Rate > 60 mL/min (>60); Glucose 93 mg/dL (80-110); HEMOLYSIS 22 (0-50); Potassium 3.8 mmol/L (3.4-5.1); Sodium 136 mmol/L (137-145)
[2023-01-24 02:06] LABS: Labcorp Hemoglobin (Hb) A1c 5.4 % (4.8-5.6)
== END ==
PROVIDERS: PCP Internal Medicine; Referring Provider Internal Medicine; Visit Provider Internal Medicine
DX: E78.2 Mixed hyperlipidemia (principal); I10 Essential (primary) hypertension; Z01.818 Encounter for other preprocedural examination
CPT/HCPCS: 36415; 80048; 83036; 85027

== ENCOUNTER 2023-03-18 06:17 | Day surgery (SDC) | payer MEDICARE, SELFPAY ==
[2022-06-21 16:29] VITALS: BMI 33.5
[2023-03-09 09:31] VITALS: BMI 34.4
[2023-03-18] VITALS (15 sets, daily range): BP systolic 114–156; BP diastolic 52–104; PULSE 80–114; RESP 12–20; TEMP 36.2–37.1; O2SAT 90–98; BMI 34.4
--- NOTE | 2023-03-18 06:00 | DI.RAD.S_ITS ---
PROCEDURE: XR KNEE LT 1TO2V INDICATIONS: TKA TECHNIQUE: Two views of the knee acquired. COMPARISON: [facility], CR, XR KNEE LT 3V, 12/19/2021, 11:04. FINDINGS: Bones: Patient is status post knee joint arthroplasty. Hardware components are in expected positions. Visualized bony structures are intact. Soft tissues: Overlying postoperative changes are noted. IMPRESSION: Status post total knee arthroplasty with expected postoperative findings. Approved by: Matthew Trinh M.D. on 03/18/2023 at 14:37
[2023-03-18] MEDS: ACETAMINOPHEN 325 MG TABLET 975 MG PO (06:48)
[2023-03-18] MEDS: CELECOXIB 200 MG CAPSULE PO (06:49)
[2023-03-18] MEDS: LACTATED RINGERS 1,000 ML 42 ML IV (06:49)
--- NOTE | 2023-03-18 07:21 | PM.PREOP ---
Pre-operative Note Interval Note History & Physical reviewed/Exam performed by Physician: Yes Changes to H&P: No
--- NOTE | 2023-03-18 07:50 | P.OP_ITS ---
Operative Date/Time/Diagnoses Date of procedure: 03/18/23 Time of procedure: 08:00 Pre-op diagnosis: left knee arthritis M17.12 Post-op diagnosis: same Procedure & Clinicians Procedure: Total knee arthroplasty left [id number] Same procedure as scheduled: Yes Indications: patient is an 82-year-old end-stage arthritis he is failed conservative treatments with [id number] medications, physical therapy, bracing and injections. He has been indicated for total knee arthroplasty. The risks and benefits of the procedure have been discussed with the patient and given the opportunity to ask questions. The risks of surgery include but are not limited to infection, malunion, nonunion, persistence of pain, damage to nerves and blood vessels, posttraumatic arthritis, DVT, PE, cardiopulmonary complications and . The patient expressed a thorough understanding of the risks and benefits of surgery and has elected to proceed. Consent was signed. Surgeon: Chantel Trujillo Weasand Trimmer: Senia Parada Anesthesia Type: General, Peripheral nerve block and Local Operative Notes Findings: End-stage left knee arthritis full-thickness cartilage loss and degenerative meniscal tearing, varus Closure Type: primary Specimen(s): none sent Prosthetic devices, grafts, tissues, transplants, or devices: [employer]hew journey 2 bCS femur cobalt chromium size 6 tibia size 4 left poly size 10 mm patella 35 x 7.5 Genesys patella Estimated Blood Loss (mL): 50 Blood products transfused: none Tourniquet time (min): 90 Procedure in detail: Patient was seen in the preoperative area where the patient and site of surgery were identified in the operative knee was marked informed consent confirmed. This was the Left knee. Patient received the appropriate preoperative antibiotics this was 2 g of Ancef. And other preoperative medications and was taken to the operating room placed on operating table in the supine position. Spinal anesthetic were administered. The operative extremity was then prepped and draped in the standard sterile fashion with a nonsterile tourniquet high on the thigh. Patient was placed on the green foam bolsters. A lateral post was placed at the level of the proximal thigh /trochanter area as a lateral post. Formal time-out procedure was performed confirming the patient's side and site of surgery and administration of appropriate preoperative antibiotics and implants were in the room accounted for. All were in agreement. Patient received a preoperative dose of tranexamic acid and then a 2nd dose at tourniquet release Patient was prepped and draped in the standard sterile fashion and the foot was placed into the leg stern. This was taken into high flexion and the incision was marked out over the anterior knee to the level of the medial tubercle tubercle. The Esmarch was then used for exsanguination and the tourniquet was inflated to 250 mmHg. Was made through the skin and subcutaneous tissue in high flexion this was then brought down into 30? of flexion for the medial parapatellar arthrotomy. A marker pen was used to dawit the arthrotomy site for later repair. Joint fluid was evacuated. The anterior osteophytes and soft tissues were removed. Routine medial release was initially made along the medial proximal tibia with Bovie. The patella was 1st cut using the saw sized and prepped and then subluxed throughout the case and protected. The leg was then taken into extension and the patella was everted and the patella was cut to accommodate the patellar button. This was sized to a 35mm button for a 7.5 mm thickness to recreate the original dimensions of the patella. Poly was removed and the protector replaced and the patella was subluxed and the knee was taken back up into flexion and attention was returned to the femur. Then the rotational landmarks of Whitesides line and the trans epicondylar axis were marked on the femur with electrocautery. Then the intramedullary guide for the femur was created. The distal femoral cut was made in 6? of valgus using the intramedullary guide with the cut setting on 0+ as the patient did not have a preoperative flexion contracture. The ACL and PCL released. The proximal tibia was then cut using the intramedullary guide, taking 9 mm off the less involved side this was the lateral plateau. The Alex wing was used to check the slope through the guide. Second pass was made through the tibial cut guide with the saw after the cut tibia was removed plane down about 1 more mm and further smooth then the resection surface. In extension remainders of the medial and lateral menisci were removed. The extension flexion gaps were then checked using both the flexion extension blocks. And was selected for a XX mm poly femur was then sized and the rotation set using the posterior condyle referencing 3? of external rotation. This measured a size 6. Cut block was then placed and the anterior, posterior and chamfer cuts were then made. The posterior osteophytes and soft tissues were then removed. Then in extension the posterior capsule was injected with a mixture of 40 mL of 0.25% Marcaine and 20 mL of Exparel ( 266 mg) care to avoid excessive injection posterior laterally. The remainder of this was saved for the capsule and subcutaneous tissue and placed during cement curing. Attention was then returned to the tibia and this was prepared with the rotation set by the extramedullary guide. Lined up with the tibial crest and the 2nd toe. Tibia was sized to a 4. The tibial trial was then pinned in place and the trial femoral components were placed. Then the intercondylar notch was cut through the femoral trial to create the box this was done with the distal than the proximal drill and then the box cut distally and then proximally. Next the insert was placed and the trial poly placed. This was stable in flexion and extension and there was a 0- 135 degree range of motion. The tibia was then finished with the drill and flange cuts and then this was removed. All trials were removed. The wound and bone was irrigated with pulsatile lavage. This was then dried with a sponge. The components were verified and opened and the cement was mixed. Cement was applied to the components and then to the bone then the tibia was cemented in place 1st followed by the femur then the patella. Excess cement was removed. With care looking around the back of the knee. Remainder of the injection was injected around the capsule. trial poly was placed back in the leg was placed into extension for the patellar cementing. After this was cured approximately 15 minutes later and the dilute Betadine solution was placed for at least 3 minutes in the wound this was then irrigated out and the final poly was placed. This was a 10 mm poly. The tourniquet was released hemostasis was achieved. Final 1g of tranexamic acid was given IV at the time of tourniquet release. The capsule was closed with 1. Ethibond suture. Subcutaneous layer was closed with 3-0 Vicryl suture. Skin was closed with a running V lock suture Stratafix Monocryl type suture and Dermabond. Aquacel dressing was placed. An Corbin wrap was applied. Anesthetic was terminated the patient was woken from anesthesia and taken to recovery room in good condition. There no immediate complications from this procedure. The patient will be maintained on a standard total knee replacement protocol with weight-bearing as tolerated. Complications: none Post-operative Condition: stable Disposition: PACU Plan for aftercare: weightbear as tolerated. Patient will be discharged home. Aspirin 81 mg b.i.d. for DVT prophylaxis. Follow-up in 2 weeks for wound check. Start outpatient physical therapy within one week. start home exercises immediately
[2023-03-18] MEDS: CEFAZOLIN 2 GM/100 ML PREMIX 100 ML IV (08:02)
[2023-03-18] MEDS: TRANEXAMIC ACID 1,000 MG VIAL 2000 MG INJ ×2 (08:08→09:46)
--- NOTE | 2023-03-18 08:18 | SUR.OPER ---
Supine on padded OR bed. Pillow under head, arms secured on padded armboards <90 degree abduction. Safety belt across torso. Non-operative leg secured with tape over blanket over lower leg. Operative leg secured in Dago boot. Foam padded brace at thigh of operative leg.
[2023-03-18] MEDS: BUPIVACAINE LIPOSOME 266 MG/20 ML VIAL INJ (08:26)
[2023-03-18] MEDS: BUPIVACAINE 0.25% (PF) 60 ML, EPINEPHrine 0.3 MG INJ (08:31)
[2023-03-18] MEDS: HYDROMORPHONE 2 MG INJ IV ×8 (10:27→11:09)
[2023-03-18] MEDS: OXYCODONE IR 5 MG TABLET PO (10:42)
[2023-03-18] MEDS: TRAMADOL 50 MG TABLET 100 MG PO ×2 (10:42→15:42)
[2023-03-18] MEDS: KETOROLAC 30 MG/ML VIAL 15 MG IV (10:57)
--- NOTE | 2023-03-18 11:26 | SUR.PHASEI ---
spoke to Dr Trujillo, pt pain not under control but block is working. Requested bed upstairs.
--- NOTE | 2023-03-18 13:22 | PC.NURSE ---
Addendum entered by Rahel Vargas R.N. 03/18/23 16:03: Discharge: Pt worked with PT (see note). Pt verbalized wanting to go home. Passed physical therapy, stairs, and pain is manageable with PO medications. Pt education provided, paperwork signed. IV discontinued. Pt wheeled via wc to private vehicle by this RN at approximately 1550 with spouse. Original Note: Admit: Pt transfered from PACU at approximately 12:45. Pt awake and alert, states he wants to discharge home this afternoon. Pain rated 2/10, able to lift surgical leg off bed, wiggle toes, and move from side to side. CMS intact. Pt VSS. PT assessing pt and at bedside at this time. Care ongoing, will continue to monitor.
[2023-03-18] MEDS: LACTATED RINGERS 1,000 ML 100 ML IV (13:37)
--- NOTE | 2023-03-18 13:57 | PT.IIE ---
Current Diagnoses Bilateral primary osteoarthritis of knee (03/18/23) Unilateral primary osteoarthritis, left knee (03/18/23) Other specified joint disorders, unspecified knee (03/18/23) Surgery Performed Operation Date: 03/18/23 07:45 Actual Procedures p Total Knee Arthroplasty(Left) - Chantel Trujillo MD Surgical History (Last Updated 03/09/23 @ 10:37 by Heather Newman RN) Anesthesia History of cervical spinal surgery History of lumbar fusion (~2012) History of lumbar spinal fusion (06/21/22) History of lumbar surgery Hx of appendectomy Hx of bilateral cataract extraction (~2015) Hx of oral surgery (~11/2021) Hx of tonsillectomy Medical History (Last Reviewed 01/21/23 @ 06:26 by Pk Ingram MD) Acid reflux 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 Do not resuscitate Easy bruisability Essential hypertension (~2005) GERD without esophagitis Hearing loss History of colonic polyps Mixed hyperlipidemia Neuropathy Obesity (BMI 35.0-39.9 without comorbidity) Osteoarthritis Polyneuropathy, unspecified Precancerous skin lesion Primary osteoarthritis involving multiple joints RBBB (right bundle branch block) Spinal stenosis Tinnitus Venous (peripheral) insufficiency Physical Therapy Inpatient Evaluation/Re-Eval M1 PT/OT-IP Prior Functional Status Start: 03/18/23 13:12 Freq: NEEDED Status: Active Protocol: Document 03/18/23 13:15 MB (Rec: 03/18/23 13:57 MB [id number]) Medical Review Prior Functional Status Medical History Reviewed Yes Diet/Fluid Consistency Regular Communication WNLs Mobility and Gait I Activities of Daily Living and IADL's I Social History Household Members spouse Living Arrangements House Number of Floors (Floors) Two Floors Number of Stairs To Enter/Railing? 2 Home Environment High Toilet Home Equipment Front Wheel Walker,Raised Toilet Seat w/Armrests,Shower Seat without Backrest,Grab Bars Near Toilet,Grab Bars In Shower Employment Status Retired M2 PT-IP Current Condition Start: 03/18/23 13:12 Freq: NEEDED Status: Active Protocol: Document 03/18/23 13:15 MB (Rec: 03/18/23 13:57 MB [id number]) Physical Therapy Current Condition Current Condition Evaluation Date 03/18/23 Treatment Diagnosis Same day L TKA M3 PT-IP Subjective Start: 03/18/23 13:12 Freq: NEEDED Status: Active Protocol: Document 03/18/23 13:15 MB (Rec: 03/18/23 13:57 MB [id number]) Subjective Physical Therapy Visit Type Type Initial Evaluation Visit Start Time 13:15 Visit Stop Time 13:40 Total Visit Minutes 25 Number of TRACK LAMINATING MACHINE TENDER Visits 0 Physical Therapy Visit Comments Patient Comments Pt states that he wants to go home today. Patient Goals See above Therapy Pain Assessment Pain When Pain Assessed At Rest Pain Present Pain Present Pain Reported Location left knee Intensity 1 Scale Used DengBenjy (Faces) Description Acute Pain Management Techniques Apply Cold M4 PT-IP Mobility and Gait Start: 03/18/23 13:12 Freq: NEEDED Status: Active Protocol: Document 03/18/23 13:15 MB (Rec: 03/18/23 13:57 MB [id number]) PT-Bed Mobility Assessment Rolling Type of Rolling Roll to Left Level of Assist Standby Assistance,1 Person Assistance Supine to Sit Supine to Sit Standby Assistance,1 Person Assistance,Head of Bed Elevated,Bedrails Scooting Scooting to Edge of Bed Standby Assistance PT-Transfer Assessment Sit to and From Stand Sit to and from Stand Contact Guard Assistance,1 Person Assistance,Use of Upper Extremities Equipment Transfer Assistive Device Gait Belt,Front Wheeled Walker Orthotic/Prosthetic Devices or Brace: No Gait Assessment Gait Gait Assistance Required: Contact Guard Assist Distance (Feet) 5 Able to Maintain Weight Bearing Status Yes During Gait Assistive Devices Assistive Device Gait Belt,Front Wheeled Walker Gait Deviations General Gait Pattern Antalgic,Decreased Stride Length,Decreased Feet Clearance,Flexed Trunk,Step-to Gait Factors Limiting Gait Function Factors Limiting Gait Function Decreased Sensation,Decreased Strength,Difficulty Following Directions,Limited Range of Motion,Pain,Poor Balance,Poor Safety Awareness Comments Gait Comments PT cues pt to move walker forward first, then left foot and then right foot for forward gait and reverse for retropulsion: right foot back, then left and then walker. 5' x2 with some turning towards his left to back up to the chair PT-Balance Assessment Sitting Balance and Reactions Static Sitting Balance Ability Fair Dynamic Sitting Balance Ability Fair Standing Balance and Reactions Static Standing Balance Ability Fair Dynamic Standing Balance Ability Fair Device Used RW M5 PT-IP Objective Assessments Start: 03/18/23 13:12 Freq: NEEDED Status: Active Protocol: Document 03/18/23 13:15 MB (Rec: 03/18/23 13:57 MB [id number]) Orientation Orientation/Cognition Level of Alertness Alert Orientation Name,Age,Birthday,Month,Date, Year,Day of Week,Place, Situation Language Function Ability No Deficits Noted Safety Awareness Understands Safety Issues Memory Description No Deficits Noted Gross Range of Motion Lower Extremity ROM Assessment Left Impaired Impairments L knee AAROM 15-70 deg Strength Lower Extremity Strength Assessment Left Impaired Comments Strength Comments R LE functional strength is WNLs and pt does not tolerate MMT LLE and starts moving to EOB as PT sets up room, d/t anxious to get started moving/ OOB to progress to d/c Sensation Assessment Sensation Gross Sensation Left LE Impaired Comments Sensation Comments Pt reports some decreased stability left knee immediately post-op M7 PT-IP Assessment and Plan Start: 03/18/23 13:12 Freq: NEEDED Status: Active Protocol: Document 03/18/23 13:15 MB (Rec: 03/18/23 13:57 MB [id number]) PT Summary Assessment and Plan Potential Rehabilitation Potential Good Status of Condition at Evaluation Evolving Summary Impairments Pain,ROM,Strength,Balance, Coordination,Sensation,Tone, Bed Mobility,Transfers,Gait, Activity Tolerance Progress Towards Goals Progressing Toward Goals Assessment Summary Pt is an 82 y/o male who is out of surgery for left TKR not even four hours. Per nsg, pt and , pt is eager to d/ c home today. He presents with superv to SBA level for bed mobility, CGA for transfers with cues for hand placement and balance support with right hand on RW and PT stabilizing LLE to check orthostatics post-op. His BP does not drop and BP and HR in LUE are: supine 114/64, 99; standing 127/70, 104; in standing after gait: 130/79, 121. Pt with tachycardia with minimal gait and activity. His LLE range and strength are limited this close to post-op and he reports some instability of knee. He would like to sit up in the chair and rest and PT will check back once more this p.m. to see if he is appropriate for 2 stair assessment to prepare for d/c. Given advanced age, pain in recovery and tachycardia, PT does not feel that staying one night in the hospital to observe all these issues is a bad idea. Will respect pt wishes and check back once more this afternoon. Goals Bed Mobility Goal Independent Transfer Goal Independent,Front Wheeled Walker Gait Goal Standby Assistance,Front Wheel Walker Gait Distance 100 Other Goals Pt will ascend and descend 2 steps with rail and no more than SBA to allow safe d/c home. Frequency of Treatment Frequency Of Treatment Twice a Day Treatment Plan Physical Therapy Treatment Plan Bed Mobility Training,Transfer Training,Gait Training, Therapeutic Exercise,Balance Retraining Precautions Other Precautions PT does not provide post-op booklet with exercises as pt and state that he did pre -op at [facility] and understands exercises. Did ed pt that working on flexion, especially HS, is going to be very important post-op. Weight Bearing Status Weight Bearing Status Weight Bear as Tolerated Recommendations To Nursing Amount of Assist Needed 1 Person Assist Discharge Recommendations PT Discharge Recommendations Home with 24/ Assist Available,Outpatient PT Transportation Needs at Discharge Private Vehicle
--- NOTE | 2023-03-18 15:02 | PT.IPTN ---
Current Diagnoses Bilateral primary osteoarthritis of knee (03/18/23) Unilateral primary osteoarthritis, left knee (03/18/23) Other specified joint disorders, unspecified knee (03/18/23) Surgery Performed Operation Date: 03/18/23 07:45 Actual Procedures p Total Knee Arthroplasty(Left) - Chantel Trujillo MD Physical Therapy Treatment Note M2 PT-IP Current Condition Start: 03/18/23 13:12 Freq: NEEDED Status: Active Protocol: Document 03/18/23 13:15 MB (Rec: 03/18/23 13:57 MB [id number]) Physical Therapy Current Condition Current Condition Evaluation Date 03/18/23 Treatment Diagnosis Same day L TKA M3 PT-IP Subjective Start: 03/18/23 13:12 Freq: NEEDED Status: Active Protocol: Document 03/18/23 15:23 TS (Rec: 03/18/23 15:41 TS [id number]) Subjective Physical Therapy Visit Type Type Treatment Note Visit Start Time 15:02 Visit Stop Time 15:19 Total Visit Minutes 17 Number of MONEY ROOM SUPERVISOR Visits 1 Physical Therapy Visit Comments Patient Comments Pt reports not having much pain right now mostly tightness, agreeable to PT. Therapy Pain Assessment Pain When Pain Assessed During Mobility Pain Present Pain Present Pain Reported M4 PT-IP Mobility and Gait Start: 03/18/23 13:12 Freq: NEEDED Status: Active Protocol: Document 03/18/23 15:23 TS (Rec: 03/18/23 15:41 TS [id number]) PT-Transfer Assessment Sit to and From Stand Sit to and from Stand Contact Guard Assistance,1 Person Assistance,Use of Upper Extremities Equipment Transfer Assistive Device Gait Belt,Front Wheeled Walker Orthotic/Prosthetic Devices or Brace: No Transfers Transfer Destination Wheelchair Transfer Technique Stand Step Pivot Comments Mobility Comments Sit to stand with FWW CGA, pt slow to stand with some difficulty transitioning hands to FWW. Stand pivot transfer into chair CGA, provided cues for slow eccentric control with use of arms of w/c. Pt was brought to stairs, pt performed steps x6 with CGA and bilateral handrails, provided cues for step sequencing. Pt was brought back to room in w/c, family present in room, preparing for d/c. Gait Assessment Comments Gait Comments Stand step pivot transfer. Stair Climbing Assessment Evaluation Level of Assist On Stairs Contact Guard Assistance,1 Person Assistance Devices Stair Climbing Assistive Devices Left Railing,Right Railing Technique/Endurance Stair Climbing Direction Ascend and Descend Stair Climbing Technique Step to Step Number of Steps Climbed 6 Comments Stair Climbing Comments See mobility comments. PT-Balance Assessment Sitting Balance and Reactions Static Sitting Balance Ability Good Dynamic Sitting Balance Ability Fair Standing Balance and Reactions Static Standing Balance Ability Fair Dynamic Standing Balance Ability Fair Device Used FWW M5 PT-IP Objective Assessments Start: 03/18/23 13:12 Freq: NEEDED Status: Active Protocol: Document 03/18/23 13:15 MB (Rec: 03/18/23 13:57 MB [id number]) Orientation Orientation/Cognition Level of Alertness Alert Orientation Name,Age,Birthday,Month,Date, Year,Day of Week,Place, Situation Language Function Ability No Deficits Noted Safety Awareness Understands Safety Issues Memory Description No Deficits Noted Gross Range of Motion Lower Extremity ROM Assessment Left Impaired Impairments L knee AAROM 15-70 deg Strength Lower Extremity Strength Assessment Left Impaired Comments Strength Comments R LE functional strength is WNLs and pt does not tolerate MMT LLE and starts moving to EOB as PT sets up room, d/t anxious to get started moving/ OOB to progress to d/c Sensation Assessment Sensation Gross Sensation Left LE Impaired Comments Sensation Comments Pt reports some decreased stability left knee immediately post-op M7 PT-IP Assessment and Plan Start: 03/18/23 13:12 Freq: NEEDED Status: Active Protocol: Document 03/18/23 15:23 TS (Rec: 03/18/23 15:41 TS [id number]) PT Summary Assessment and Plan Potential Rehabilitation Potential Good Summary Impairments Pain,ROM,Strength,Balance, Coordination,Sensation,Tone, Bed Mobility,Transfers,Gait, Activity Tolerance Progress Towards Goals Progressing Toward Goals Assessment Summary Pt is progressing well with his mobility. He continues to be CGA for sit to stand and stand step pivot transfer to w /c. He progressed his stairs to x6 CGA with use of bilateral rails, he had no buckling or LOB. PT is recommending return home with 24/7 assist. Goals Bed Mobility Goal Independent Transfer Goal Independent,Front Wheeled Walker Gait Goal Standby Assistance,Front Wheel Walker Gait Distance 100 Other Goals Pt will ascend and descend 2 steps with rail and no more than SBA to allow safe d/c home. Frequency of Treatment Frequency Of Treatment Twice a Day Treatment Plan Physical Therapy Treatment Plan Bed Mobility Training,Transfer Training,Gait Training, Therapeutic Exercise,Balance Retraining Precautions Other Precautions PT does not provide post-op booklet with exercises as pt and state that he did pre -op at [facility] and understands exercises. Did ed pt that working on flexion, especially HS, is going to be very important post-op. Weight Bearing Status Weight Bearing Status Weight Bear as Tolerated Recommendations To Nursing Amount of Assist Needed 1 Person Assist Discharge Recommendations PT Discharge Recommendations Home with 14/03 Assist Available,Outpatient PT Transportation Needs at Discharge Private Vehicle
== END 2023-03-18 15:50 | disposition home or self-care (01) ==
LOC: OR 06:18 → AC 06:18
PROVIDERS: PCP Internal Medicine; Referring Provider Orthopaedic Surgery Foot and Ankle Surgery; Visit Provider Orthopaedic Surgery Foot and Ankle Surgery
PROC: 0SRD0JZ Replacement of Left Knee Joint with Synthetic Substitute, Open Approach (ICD-10-PCS; CPT 27447; principal; 2023-03-18 07:45)
DX: M17.12 Unilateral primary osteoarthritis, left knee (principal); G89.18 Other acute postprocedural pain; I10 Essential (primary) hypertension
CPT/HCPCS: 27447; 64450; 73560; 97161; 97530; C1776; C9290; J0171; J0690; J1100; J1170; J1885; J2405; J2704; J3010

== ENCOUNTER → 2023-12-02 10:40 | Outpatient (CLI) | payer MEDICARE, SELFPAY ==
[2023-03-18 13:45] VITALS: BMI 34.4
--- NOTE | 2023-12-02 10:42 | DI.MRI.S_ITS ---
PROCEDURE: MR CERVICAL SPINE WO CON INDICATIONS: Radiculopathy, cervical region TECHNIQUE: Noncontrast sagittal T1 spin echo and T2 fast spin echo, sagittal STIR, foraminal oblique sagittal T2 fast spin echo, and axial gradient echo or T2 fast spin echo through the cervical spine. COMPARISON: [facility], MR, MR CERVICAL SPINE WO CON, 09/24/2020, 12:49. FINDINGS: Image quality: Excellent. Alignment and Curvature: There is normal bony alignment. Bone Marrow: Marrow demonstrates normal overall signal. Spinal Cord: Visualized spinal cord has normal size and signal. No cerebellar tonsillar herniation. Paraspinous Soft Tissues: No paravertebral masses. Prevertebral soft tissues are normal in thickness. C2-C3: Normal appearance. C3-C4: Disc space narrowing and posterior disc osteophyte complex with hypertrophic arthropathy. Gzhc-ux-vjqyjles central stenosis. Mild left and no right foraminal stenosis C4-C5: Disc space narrowing and hypertrophic uncovertebral joints. No central or foraminal stenosis C5-C6: Disc space narrowing and hypertrophic uncovertebral joints. No central or foraminal stenosis. C6-C7: Normal appearance. C7-T1: Normal appearance. 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 on 12/02/2023 at 18:26
== END ==
LOC: MRI 10:41
PROVIDERS: PCP Internal Medicine; Referring Provider Orthopaedic Surgery Orthopaedic Surgery of the Spine; Visit Provider Orthopaedic Surgery Orthopaedic Surgery of the Spine
DX: M47.22 Other spondylosis with radiculopathy, cervical region (principal); M50.11 Cervical disc disorder with radiculopathy, high cervical region; M48.02 Spinal stenosis, cervical region
CPT/HCPCS: 72141

== ENCOUNTER → 2023-12-08 14:03 | Outpatient (CLI) | payer MEDICARE, SELFPAY ==
[2023-03-18 13:45] VITALS: BMI 34.4
[2023-12-08 15:28] LABS: Hematocrit 38.6 % (41-53); Hemoglobin 12.8 g/dL (13.5-17.5); Mean Corpuscular HGB Conc 33.2 % (30-36); Mean Corpuscular Hemoglobin 30.3 PG (26-34); Mean Corpuscular Volume 91.2 fL (80-100); Platelet Count 145 X10^3/uL (150-400); Red Blood Cell Count 4.23 X10^6/uL (4.5-5.9); Red Cell Distribution Width 14.8 % (11.6-14.8); White Blood Cell Count 5.5 X10^3/uL (4.5-11.0)
[2023-12-08 19:23] LABS: Alanine Aminotransferase 12 IU/L (<50); Albumin 4.4 g/dL (3.5-5.0); Albumin Globulin Ratio 1.6 (1.0-2.8); Alkaline Phosphatase 62 U/L (38-126); Aspartate Aminotransferase 27 IU/L (17-59); BUN Creatinine Ratio 23.7 (6-22); Bilirubin Total 0.4 mg/dL (0.2-1.3); Blood Urea Nitrogen 18 mg/dL (9-20); Calcium 8.9 mg/dL (8.4-10.2); Carbon Dioxide 30 mmol/L (22-32); Chloride 103 mmol/L (98-107); Cholesterol 163 mg/dL (140-199); Estimated Glomerular Filt Rate > 60 mL/min (>60); Globulin 2.8 g/dL (1.7-4.1); Glucose 98 mg/dL (80-110); HDL Cholesterol 48 mg/dL (40-60); HEMOLYSIS < 15 (0-50); LDL Cholesterol Calculated 98 mg/dL (<100); Sodium 138 mmol/L (137-145); Total Protein 7.2 g/dL (6.3-8.2); Triglycerides 87 mg/dL (35-150)
[2023-12-08 19:49] LABS: Prostate Specific Antigen 0.666 ng/mL (0.10-4.00)
== END ==
LOC: LAB 14:04
PROVIDERS: PCP Internal Medicine; Referring Provider Internal Medicine; Visit Provider Internal Medicine
DX: N40.1 Benign prostatic hyperplasia with lower urinary tract symptoms (principal); N13.8 Other obstructive and reflux uropathy; E78.2 Mixed hyperlipidemia; I10 Essential (primary) hypertension
CPT/HCPCS: 36415; 80053; 80061; 84153; 85027

== ENCOUNTER → 2024-04-10 09:13 | Outpatient (CLI) | payer MEDICARE, SELFPAY ==
[2023-03-18 13:45] VITALS: BMI 34.4
--- NOTE | 2024-04-10 09:14 | DI.RAD.S_ITS ---
PROCEDURE: XR CHEST 2V INDICATIONS: right thoracic pain TECHNIQUE: 2 views of the chest were acquired. COMPARISON: None. FINDINGS: Surgical changes and devices: None. Lungs and pleura: No dense consolidation or pleural effusion. Mediastinum: Prominent hilar structures. 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 Bones and chest wall: Degenerative findings. IMPRESSION: No acute thoracic abnormality. Indeterminate prominent hilar structures, usually prominent vessels. 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 on 04/10/2024 at 16:03 Approved by: Hema Corona M.D. on 04/10/2024 at 16:04
--- NOTE | 2024-04-10 09:14 | DI.RAD.S_ITS ---
PROCEDURE: XR THORACIC SPINE 2V INDICATIONS: right thoracic pain TECHNIQUE: 3 views of the thoracic spine were acquired. COMPARISON: None. FINDINGS: Bones: Partially seen lumbar fusion hardware. Overall mild thoracic spondylotic changes. Minimal nonacute appearing endplate deformities are present. There is trace rightward spinal curvature. Soft tissues: No suspicious calcifications. Cervical thoracic junction not well seen even on swimmer's view. IMPRESSION: No acute radiographic abnormality. Mild degenerative changes. If there is high concern for further derangement, consider MRI evaluation. Dictated by: Hema Corona M.D. on 04/10/2024 at 16:05 Approved by: Hema Corona M.D. on 04/10/2024 at 16:05
== END ==
PROVIDERS: PCP Internal Medicine; Referring Provider Internal Medicine; Visit Provider Internal Medicine
DX: M47.814 Spondylosis without myelopathy or radiculopathy, thoracic region (principal); M54.6 Pain in thoracic spine; Z98.1 Arthrodesis status
CPT/HCPCS: 71046; 72070

== ENCOUNTER → 2024-05-21 12:01 | Outpatient (CLI) | payer MEDICARE, SELFPAY ==
[2023-03-18 13:45] VITALS: BMI 34.4
--- NOTE | 2024-05-21 12:19 | DI.MRI.S_ITS ---
PROCEDURE: MR THORACIC SPINE WO CON INDICATIONS: Strain of muscle and tendon of back wall of thorax, initial TECHNIQUE: Noncontrast sagittal T1 spine echo and T2 fast spin echo, sagittal STIR, and T2 fast spin echo through the thoracic spine. COMPARISON: [facility], CR, XR THORACIC SPINE 2V, 04/10/2024, 9:17. FINDINGS: Image quality: Excellent. Alignment and Curvature: S shaped scoliotic curvature is present. Bone Marrow: Marrow is of normal overall signal. Increased T1/T2 signal is present at T5 most suggestive of hemangioma. No acute vertebral body compression fractures. Spinal Cord: Visualized spinal cord is normal in size and signal. Paraspinous Soft Tissues: No paravertebral masses. Miscellaneous: On axial images, central canal is widely patent at all scanned levels. Scattered disc bulges are present. Mild left foraminal narrowing at T9-10, T8-9, T7-8, mild bilateral T7-8, left T6-7 IMPRESSION: Scoliotic curvature. Scattered disc bulges as well as foraminal narrowing. Dictated by: Manisha Hartman M.D. on 05/21/2024 at 19:44 Approved by: Manisha Hartman M.D. on 05/21/2024 at 19:47
== END ==
PROVIDERS: PCP Internal Medicine; Referring Provider Orthopaedic Surgery Orthopaedic Surgery of the Spine; Visit Provider Orthopaedic Surgery Orthopaedic Surgery of the Spine
DX: S29.012A Strain of muscle and tendon of back wall of thorax, initial encounter (principal); M51.34 Other intervertebral disc degeneration, thoracic region; M48.04 Spinal stenosis, thoracic region; X58.XXXA Exposure to other specified factors, initial encounter
CPT/HCPCS: 72146

== ENCOUNTER → 2024-12-11 11:47 | Outpatient (CLI) | payer MEDICARE, SELFPAY ==
[2023-03-18 13:45] VITALS: BMI 34.4
[2024-12-11 12:47] LABS: Hematocrit 39.6 % (41-53); Hemoglobin 13.1 g/dL (13.5-17.5); Mean Corpuscular HGB Conc 33.2 % (30-36); Mean Corpuscular Hemoglobin 30.4 PG (26-34); Mean Corpuscular Volume 91.7 fL (80-100); Platelet Count 147 X10^3/uL (150-400); Red Blood Cell Count 4.31 X10^6/uL (4.5-5.9); Red Cell Distribution Width 14.3 % (11.6-14.8); White Blood Cell Count 5.5 X10^3/uL (4.5-11.0)
[2024-12-11 13:08] LABS: Alanine Aminotransferase 14 IU/L (<50); Albumin 4.5 g/dL (3.5-5.0); Albumin Globulin Ratio 1.7 (1.0-2.8); Alkaline Phosphatase 60 U/L (38-126); Aspartate Aminotransferase 27 IU/L (17-59); BUN Creatinine Ratio 17.1 (6-22); Bilirubin Total 0.5 mg/dL (0.2-1.3); Blood Urea Nitrogen 18 mg/dL (9-20); Carbon Dioxide 29 mmol/L (22-32); Chloride 100 mmol/L (98-107); Cholesterol 188 mg/dL (140-199); Estimated Glomerular Filt Rate > 60 mL/min (>60); Globulin 2.6 g/dL (1.7-4.1); Glucose 91 mg/dL (70-99); HDL Cholesterol 48 mg/dL (40-60); HEMOLYSIS < 15 (0-50); LDL Cholesterol Calculated 114 mg/dL (<100); Potassium 4.6 mmol/L (3.4-5.1); Sodium 137 mmol/L (137-145); Total Protein 7.1 g/dL (6.3-8.2); Triglycerides 131 mg/dL (35-150)
== END ==
PROVIDERS: PCP Internal Medicine; Referring Provider Internal Medicine; Visit Provider Internal Medicine
DX: E78.2 Mixed hyperlipidemia (principal); I10 Essential (primary) hypertension; D64.9 Anemia, unspecified
CPT/HCPCS: 36415; 80053; 80061; 85027